=== PATIENT | male | born 1940 | race Caucasian/White ===

== ENCOUNTER 2019-11-09 17:42 | Emergency (ER) | payer MEDICARE, SELFPAY ==
[2019-11-09 17:55] VITALS: BP 169/86; PULSE 87; RESP 18; TEMP 36.8; O2SAT 96
--- NOTE | 2019-11-09 18:17 | ED.SKABFB ---
HPI - Skin/Abscess/Foreign Bdy General Chief complaint: Skin/Abscess/Foreign Body Stated complaint: rash Source: patient Mode of arrival: ambulatory Limitations: no limitations History of Present Illness HPI narrative: Patient states that this rash began yesterday and today it has gotten much worse he has a rash on bilateral lower extremities and up onto his truck. It is present on his buttocks and low back as well. It is red and somewhat itchy. He has no fevers no nausea no vomiting he does not feel ill in any other way complaint: rash Onset (ago): day(s) Location: back, buttocks, LLE and RLE Severity: mild Relieving factors: none Exacerbating factors: none Associated symptoms: denies other symptoms Treatments prior to arrival: none Related Data Home Medications Medication Instructions Recorded Confirmed apixaban [Eliquis] 5 mg PO DAILY 11/09/19 11/09/19 aspirin [Aspirin Low Dose] 81 mg PO DAILY 11/09/19 11/09/19 isosorbide mononitrate 30 mg PO DAILY 11/09/19 11/09/19 pravastatin 20 mg PO DAILY 11/09/19 11/09/19 tamsulosin 0.4 mg PO TIDWMEAL 11/09/19 11/09/19 Allergies Allergy/AdvReac Type Severity Reaction Status Date / Time Penicillins Allergy Mild Rash Verified 11/09/19 18:20 Review of Systems Review of Systems: All systems reviewed & are unremarkable except as noted in HPI and below Constitutional: Constitutional: Reports no additional constitutional complaints Eyes: Eyes: Reports no additional eye complaints ENT: Reports system reviewed and no additional complaints, except as documented Cardiovascular: Cardiovascular: Reports no additional cardiovascular complaints Respiratory: Respiratory: Reports no additional respiratory complaints Gastrointestinal: Gastrointestinal: Reports no additional gastrointestinal complaints Genitourinary: Genitourinary: Reports no additional male genitourinary complaints Musculoskeletal: Musculoskeletal: Reports no additional musculoskeletal complaints Neurologic: Reports system reviewed and no additional complaints, except as documented Psychiatric: Psychiatric: Reports no additional psychiatric complaints Endocrine: Endocrine: Reports no additional endocrine complaints Hematologic/Lymphatic: Hematologic/Lymphatic: Reports no additional hematologic/lymphatic complaints Allergic/Immunologic: Allergic/Immunologic: Reports no additional allergic/immunologic complaints [facility] Past Medical History Medical History (Updated 11/09/19 @ 18:26 by Magali Doe MD) BPH (benign prostatic hyperplasia) Hypercholesteremia Social History Social History (Updated 11/09/19 @ 18:21 by Magali Doe MD) Smoking status: Former smoker Alcohol intake: never Substance use: never Gender identity (if verbalized by the patient): Male Exam Const: General: no acute distress and alert Orientation/consciousness: patient oriented x3 HENMT: Head: normal to inspection Eyes: Conjunctivae: conjunctivae normal Pupils: Equal, round and reactive pupils present Chest: Chest palpation & inspection: normal inspection of the chest Resp: Effort & Inspection: normal respiratory effort Auscultation: clear to auscultation bilaterally Cardio: Rate: regular rate Rhythm: regular rhythm GI: Auscultation: normal bowel sounds Back/Spine/Pelvis: Back: no CVA tenderness Skin: General skin exam: normal color Other: morbilliform type rash over bilateral lower extremities extending up in the posterior gluteal and posterior trunk was blanching rash over majority of body some nonblanching present over anterior mason bilaterally Neuro: General: patient oriented x3 and moves all extremities Psych: Appearance: grossly normal Mental Status: mental status grossly normal Thought content: Yes Normal thought content present Course Vital Signs Vital signs: Vital Signs Temperature 36.8 C 11/09/19 17:55 Pulse Rate 87 11/09/19 17:55 Respiratory Rate 18
[2019-11-09 18:21] LABS: Basophils Absolute Auto 0.04 K/mm3 (0.00-0.10); Basophils Percent Auto 0.4 % (0.0-1.0); Eosinophils Absolute Auto 0.43 K/mm3 (0.02-0.50); Eosinophils Percent Auto 4.3 % (1.0-6.0); Hematocrit 45.1 % (37.0-46.0); Immature Granulocyte Absolute 0.05 K/mm3 (0.00-0.00); Immature Granulocyte Percent A 0.5 % (0.0-0.0); Lymphocytes Absolute Auto 0.97 K/mm3 (1.10-4.50); Lymphocytes Percent Auto 9.7 % (18.0-42.0); Mean Corpuscular HGB Conc 33.3 g/dL (32.0-36.0); Mean Corpuscular Hemoglobin 31.3 pg (27.0-31.0); Mean Corpuscular Volume 94.2 fL (78.0-102.0); Mean Platelet Volume 9.1 fl (8.7-11.0); Monocytes Absolute Auto 0.86 K/mm3 (0.10-0.90); Monocytes Percent Auto 8.6 % (2.0-11.0); Neutrophils Absolute Auto 7.7 K/mm3 (1.7-7.2); Neutrophils Percent Auto 76.5 % (50.0-70.0); Platelet Count Result 179 K/mm3 (150-420); Red Blood Count 4.79 M/mm3 (4.70-6.10); Red Cell Distribution Width 12.7 % (11.6-14.4)
[2019-11-09 18:35] LABS: Alanine Aminotransferase 23 U/L (16-63); Albumin Level 3.3 g/dL (3.4-5.0); Alkaline Phosphatase 71 U/L (46-116); Anion Gap 7 mmol/L (8-16); Aspartate Amino Transferase 14 U/L (15-37); Bilirubin,Total 0.5 mg/dL (0.00-1.00); Blood Urea Nitrogen 16 mg/dL (7-18); Calcium 8.6 mg/dL (8.5-10.1); Carbon Dioxide 28 mmol/L (21-32); Chloride 105 mmol/L (98-108); Estimated CRCL calculation 40 ml/min; Estimated Glomerular Filt Rate 48; Glucose 131 mg/dL (70-99); Osmolality Calculated 293 mOsm/kg (285-295); Potassium 3.7 mmol/L (3.5-5.1); Sodium 140 mmol/L (136-145); Total Protein 7.2 g/dL (6.4-8.2)
== END 2019-11-09 18:53 | disposition home or self-care (01) ==
PROVIDERS: Emergency Provider Emergency Medicine; PCP Internal Medicine
DX: T78.40XA Allergy, unspecified, initial encounter (principal)
CPT/HCPCS: 36415; 80053; 83520; 85025; 99282; 99283

== ENCOUNTER 2020-10-20 08:38 | Emergency (ER) | payer MEDICARE, SELFPAY ==
[2020-10-20 08:40] VITALS: BP 142/70; PULSE 71; RESP 16; TEMP 37; O2SAT 94
--- NOTE | 2020-10-20 09:09 | ED.WEAKNESS ---
HPI - Weakness General Chief complaint: Fall Stated complaint: fell in bathroom Time Seen by Provider: 10/20/20 09:09 Source: patient Mode of arrival: ambulatory Limitations: no limitations History of Present Illness HPI Narrative: Patient is brought in by . He has had ongoing moderate generalized weakness at home, no new focal weakness. Weakness is chronic and has not changed over the past few months. Complaint: generalized weakness Onset (ago): month(s) Duration: constant Location: generalized Migration: none Severity: moderate Relieving factors: none Exacerbating factors: evening (worse toward the end of the day) Associated symptoms: denies other symptoms Related Data Home Medications Medication Instructions Recorded Confirmed apixaban [Eliquis] 5 mg PO DAILY 11/09/19 11/09/19 aspirin [Aspirin Low Dose] 81 mg PO DAILY 11/09/19 11/09/19 isosorbide mononitrate 30 mg PO DAILY 11/09/19 11/09/19 pravastatin 20 mg PO DAILY 11/09/19 11/09/19 Allergies Allergy/AdvReac Type Severity Reaction Status Date / Time Penicillins Allergy Mild Rash Verified 11/09/19 18:20 Review of Systems Constitutional: Constitutional: Reports no additional constitutional complaints Eyes: Eyes: Reports no additional eye complaints ENT: Reports system reviewed and no additional complaints, except as documented Cardiovascular: Cardiovascular: Reports no additional cardiovascular complaints Respiratory: Respiratory: Reports no additional respiratory complaints Gastrointestinal: Gastrointestinal: Reports no additional gastrointestinal complaints Genitourinary: Genitourinary: Reports no additional male genitourinary complaints Musculoskeletal: Musculoskeletal: Reports no additional musculoskeletal complaints Integumentary/Breasts: Skin/Breast: Reports system reviewed and no additional complaints, except as docu Neurologic: Reports system reviewed and no additional complaints, except as documented Psychiatric: Psychiatric: Reports no additional psychiatric complaints Endocrine: Endocrine: Reports no additional endocrine complaints, Denies as per HPI, Denies excessive sweating, Denies fatigue, Denies polydipsia and Denies polyuria Hematologic/Lymphatic: Hematologic/Lymphatic: Reports no additional hematologic/lymphatic complaints Allergic/Immunologic: Allergic/Immunologic: Reports no additional allergic/immunologic complaints PMFSH Past Medical History Medical History BPH (benign prostatic hyperplasia) Hypercholesteremia Surgical History Surgical History Hx of CABG Family History Family History Father CAD (coronary artery disease) Mother Cerebrovascular accident Social History Social History Smoking status: Former smoker Alcohol intake: never Substance use: never Gender identity (if verbalized by the patient): Male Exam Const: General: healthy appearing, no acute distress and alert Orientation/consciousness: patient oriented x3 HENMT: Head: normal to inspection Ears: external ears normal and TM's normal bilaterally General nose exam: Normal external nose present Mouth: Yes Normal oral and palatal mucosa present Throat: posterior oropharynx normal Eyes: Conjunctivae: conjunctivae normal Neck: Neck: normal visual inspection Chest: Chest palpation & inspection: normal inspection of the chest Resp: Effort & Inspection: normal respiratory effort Auscultation: clear to auscultation bilaterally Cardio: Rate: regular rate Rhythm: regular rhythm GI: GI Palp: Yes Soft to palpation (nontender) : Male General Exam: Yes normal external exam Back/Spine/Pelvis: Back: no CVA tenderness Skin: General skin exam: normal color Neuro: General: patient oriented x3 and moves all extremities Extrem: G
[2020-10-20 09:16] LABS: Add Urine Microscopic? YES; Appearance Urine Clear (Clear); Bilirubin Urine Negative (Negative); Blood Urine 1+ (Negative); Color Urine Light Yellow (Yellow); Glucose Urine UA Negative (Negative); Ketones Urine Negative (Negative); Leukocyte Esterase Ur Negative LEU/UL (Negative); Nitrate Urine Negative (Negative); Protein Urine Negative (Negative); Urobilinogen Urine 0.2 mg/dL (0.2-1.0)
[2020-10-20 09:20] LABS: Bacteria Urine None seen /hpf; RBC Urine 0-2 /hpf (0-2); WBC Urine None seen /hpf (0-3)
--- NOTE | 2020-10-20 09:30 | PC.NURSE ---
PT X 2 ASSIST HELPED UP TO COMMODE, PT ADJUSTS HIMSELF BY SCOOTING ONLY USING RIGHT SIDE AND FALLS TO THE FLOOR, DENIES PAIN, DENIES INJURY, NO OBVIOUS INJURY NOTED BY THIS RN. PT STATES THIS IS A SIGNIFICANT CHANGE FROM HIS DAILY ABILITIES.
[2020-10-20 09:37] LABS: Basophils Absolute Auto 0.06 K/mm3 (0.00-0.10); Basophils Percent Auto 0.7 % (0.0-1.0); Eosinophils Absolute Auto 0.26 K/mm3 (0.02-0.50); Eosinophils Percent Auto 2.8 % (1.0-6.0); Hematocrit 47.1 % (37.0-46.0); Hemoglobin 15.9 g/dL (12.4-15.3); Immature Granulocyte Absolute 0.05 K/mm3 (0.00-0.00); Immature Granulocyte Percent A 0.5 % (0.0-0.0); Lymphocytes Absolute Auto 1.44 K/mm3 (1.10-4.50); Lymphocytes Percent Auto 15.7 % (18.0-42.0); Mean Corpuscular HGB Conc 33.8 g/dL (32.0-36.0); Mean Corpuscular Hemoglobin 31.6 pg (27.0-31.0); Mean Corpuscular Volume 93.6 fL (78.0-102.0); Mean Platelet Volume 9.3 fl (8.7-11.0); Monocytes Absolute Auto 0.93 K/mm3 (0.10-0.90); Monocytes Percent Auto 10.1 % (2.0-11.0); Neutrophils Absolute Auto 6.4 K/mm3 (1.7-7.2); Neutrophils Percent Auto 70.2 % (50.0-70.0); Platelet Count Result 198 K/mm3 (150-420); Red Blood Count 5.03 M/mm3 (4.70-6.10); Red Cell Distribution Width 12.3 % (11.6-14.4); White Blood Count 9.2 K/mm3 (4.8-10.8)
[2020-10-20 09:54] LABS: Alanine Aminotransferase 21 U/L (16-63); Albumin Level 3.4 g/dL (3.4-5.0); Alkaline Phosphatase 70 U/L (46-116); Anion Gap 13 mmol/L (8-16); Aspartate Amino Transferase 14 U/L (15-37); Bilirubin,Total 0.5 mg/dL (0.00-1.00); Blood Urea Nitrogen 13 mg/dL (7-18); Calcium 8.8 mg/dL (8.5-10.1); Carbon Dioxide 24 mmol/L (21-32); Chloride 108 mmol/L (98-108); Estimated Glomerular Filt Rate 55; Glucose 106 mg/dL (70-99); Osmolality Calculated 300 mOsm/kg (285-295); Potassium 3.6 mmol/L (3.5-5.1); Sodium 145 mmol/L (136-145)
[2020-10-20 09:57] LABS: Lactic Acid Reflex 1.4 mmol/L (0.4-2.0)
--- NOTE | 2020-10-20 10:30 | PC.NURSE ---
PT REPORTS BOWEL MOVEMENT, CLEANED OF SOILED LINENS AND REPOSITIONED FOR COMFORT
[2020-10-20 11:19] VITALS: BP 153/73; PULSE 73; O2SAT 94
--- NOTE | 2020-10-20 11:31 | PC.NURSE ---
SPOKE WITH PATIENT AND FAMILY CONCERNING SAFETY ISSUES WHILE AT HOME D/T TO HIS INABILITY TO SAFELY WALK OR TRANSFER BY HIMSELF - DENIES NEEDING PRISON PLACEMENT OR THREE DAY ADMIT
[2020-10-23 20:41] LABS: Vitamin D 25 Hydroxy 9 ng/mL (30-100)
== END 2020-10-20 11:30 | disposition home or self-care (01) ==
PROVIDERS: Emergency Provider Emergency Medicine; PCP Internal Medicine
DX: R53.1 Weakness (principal); E78.00 Pure hypercholesterolemia, unspecified; Z87.891 Personal history of nicotine dependence; Z79.899 Other long term (current) drug therapy
CPT/HCPCS: 36415; 80053; 81001; 82306; 83605; 85025; 99282; 99283

== ENCOUNTER 2020-10-23 15:03 | Outpatient (CLI) | payer MEDICARE, SELFPAY ==
--- NOTE | ~2020-10-23 | XR_ITS ---
EXAMINATION: XR hip LT min 2V DATE: 10/23/2020 16:11 INDICATION: Left hip injury. TECHNIQUE: 2 views of left hip were obtained. COMPARISON: None. FINDINGS: Bone alignment is normal. No fracture. There is mild left hip osteoarthritis. IMPRESSION: 1. Mild left hip osteoarthritis. Reviewed, dictated and finalized at location A.
--- NOTE | ~2020-10-23 | XR_ITS ---
EXAMINATION: XR femur LT min 2V INDICATION: Left leg pain TECHNIQUE: Two views of the left femur are obtained on four radiographs COMPARISON: None available FINDINGS: Bone alignment is normal. There is no fracture. Calcified atherosclerosis is noted. IMPRESSION: 1. No acute osseous abnormality. Reviewed, dictated and finalized at location B.
--- NOTE | ~2020-10-23 | XR_ITS ---
EXAMINATION: XR shoulder LT min 2V, XR forearm LT 2V, XR humerus LT DATE: 10/23/2020 16:11 INDICATION: Fall with limited range of motion of the left upper extremity. TECHNIQUE: 1. AP internally and externally rotated, AP oblique externally rotated and transscapular Y views of t he left shoulder were obtained. 2. Internal and externally rotated views of the left humerus were obtained. 3. AP and lateral views of the left forearm were obtained. COMPARISON: Left shoulder radiographs dated 03/20/2017 FINDINGS: Left shoulder: Normal alignment. No fracture. Moderate left acromioclavicular and mild glenohumeral osteoarthritis. Visualized portions of the left lung is clear. Median sternotomy wires and mediastinal surgical clip s are seen, likely from prior coronary artery bypass grafting. Left humerus: There is minimal change in orientation of the humerus on the humeral radiographs however relatively o rthogonal views are obtained on the radiographs of the left shoulder and forearm. No fracture. Mild o steoarthritis at the left elbow with no evident joint effusion. Soft tissues are unremarkable. Left forearm: Old healed fracture deformity at the distal left radius. No acute fracture identified. Mild osteoarth ritis at the wrist and radial aspect of the carpus. Atherosclerotic calcification at the radial arter y at the radial aspect of the carpus. 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 No acute osseous abnormality. Reviewed, dictated and finalized at location A. 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 No acute osse ous abnormality. 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 No acute osse ous abnormality.
== END 2020-10-23 15:04 | disposition home or self-care (01) ==
LOC: CHSIMG 15:06
PROVIDERS: PCP Internal Medicine; Visit Provider Internal Medicine
DX: M25.552 Pain in left hip (principal); M25.512 Pain in left shoulder; M79.652 Pain in left thigh; M79.602 Pain in left arm
CPT/HCPCS: 73030; 73060; 73090; 73502; 73552

== ENCOUNTER 2021-02-11 10:32 | Outpatient (CLI) | payer MEDICARE, SELFPAY ==
--- NOTE | ~2021-02-11 | CT_ITS ---
EXAMINATION: CT brain wo con DATE: 02/11/2021 11:11 INDICATION: Status post fall. Head injury. TECHNIQUE: Computed tomography (CT) of the head was performed without intravenous contrast. The dose- length product was 605.33 mGy-cm. COMPARISON: MRI dated 06/27/[address] dated 06/24/2016 . FINDINGS: There is left periorbital and frontal scalp swelling. There are chronic right frontal lobe, right parietal lobe and right occipital lobe infarctions. There are chronic bilateral lacunar infarc tions. No ventriculomegaly or midline shift. There is intracranial atherosclerosis. Paranasal sinuses and mastoids are pneumatized no depressed skull fractures. No acute intracranial hemorrhage or infar ction. IMPRESSION: 1. Chronic right frontal, parietal and occipital lobe infarctions. Chronic bilateral lacunar infarcti ons. 2: No acute intracranial abnormality. Reviewed, dictated and finalized at location B. [employer] IMPRESSION: 1. Chronic right frontal, parietal and occipital lobe infarctions. Chronic bila teral lacunar infarctions. 2: No acute intracranial abnormality.
== END 2021-02-11 10:33 | disposition home or self-care (01) ==
LOC: CHSIMG 10:34
PROVIDERS: PCP Internal Medicine; Visit Provider Internal Medicine
DX: S09.90XA Unspecified injury of head, initial encounter (principal); Z79.01 Long term (current) use of anticoagulants
CPT/HCPCS: 70450

== ENCOUNTER 2021-03-04 12:57 | Outpatient (RCR) | payer MEDICARE, SELFPAY ==
--- NOTE | 2021-03-04 14:25 | PTOPEVAL ---
Thank you for referring Abbe Mulligan to [facility].? The patient is scheduled to be seen for therapy? __3__x/week for 12 visits. Please review, sign, date and return this plan of care LALY. I agree with and certify that the following plan of care is medically necessary. Referring Physician Date Admitting Provider: Attending Provider: Memo Adam MD Referring Provider: *PT Outpatient Evaluation Start: 03/04/21 13:03 Freq: Status: Active Protocol: Document 03/04/21 13:03 [facility] (Rec: 03/04/21 14:25 [email or web address] [id number]) Therapy Assessment Status Assessment Status Assessment Status Evaluation Outpatient Past Medical History Neurological History Hx Cerebrovascular Accident (CVA) Yes Cardiovascular History Hx Hypercholesterolemia Yes Hx Hypertension Yes Gastrointestinal History Hx Gastroesophageal Reflux Disease Yes Genitourinary History Hx Benign Prostatic Hyperplasia Yes Evaluation Information Problem Diagnosis unsteady gait, cva Onset 02/20/21 Subjective Information Pt. reports that he fell about Query Text:As Reported By Patient/ 2 months ago. He reports Family having fallen several days in a row. He reports that he went into the longterm for about 30 days after the falls for rehab. he states that about 6 months ago he could walk through the home, but states that he cannot walk much more than 10' at this time. He reports that he did not fall as frequently prior to the past couple months. He reports that his goal is to be able to walk further and walk through the home without falling. Prior Level of Function Activity Level (Last 3 Months) Occupation retired Hand Dominance Right Activity of Daily Living Ability Needs Some Help Community Mobility Needs Some Help Stairs Ability Needs Some Help Functional Cognition (Planning, Shopping Dependent , Taking Medications) Cooking No Cleaning No Laundry No Shopping No Driving No Comments Additional Prior Level of Function Pt. uses a wc for community Comments navigation. He is able to get around the home with his
--- NOTE | 2021-03-25 15:13 | OTOPEVAL ---
Thank you for referring Abbe Mulligan to [facility].? The patient is scheduled to be seen for therapy? ____x/week for ___ weeks. Please review, sign, date and return this plan of care LALY. I agree with and certify that the following plan of care is medically necessary. Referring Physician Date Admitting Provider: Attending Provider: Memo Adam MD Referring Provider: *OT Outpatient Evaluation Start: 03/25/21 13:31 Freq: Status: Active Protocol: Document 03/25/21 14:00 [facility] (Rec: 03/25/21 15:10 [facility] [id number]) Therapy Assessment Status Assessment Status Assessment Status Evaluation Outpatient Past Medical History Neurological History Hx Cerebrovascular Accident (CVA) Yes Cardiovascular History Hx Hypercholesterolemia Yes Hx Hypertension Yes Gastrointestinal History Hx Gastroesophageal Reflux Disease Yes Genitourinary History Hx Benign Prostatic Hyperplasia Yes Evaluation Information Problem Diagnosis Decreased L finger ROM Onset 03/18/21 Cause CVA Subjective Information Patient and his report Query Text:As Reported By Patient/ that patient's left hand has Family gotten very tight. Patient states that he does not use his left hand for functional use. Patient currently does not have any hand splints/ orthosis that he uses. Pain Assessment Timing of Pain Assessment Timing of Pain Assessment Assessment Self Report Self Report Pain Level 0 Pain Score Pain Score 0: Self Report Upper Extremity Range of Motion General Upper Extremity Range of Motion Reason Not Measured WNL/Right Gross Upper Extremity Range of Motion No AROM in the L hand/thumb Comments with moderate hypertonicity patient rests the L hand in 90 degrees of MCP flexion Splint/Brace/Cast Assessment Splint and Bracing Assessment Left Hand Fabrication Clinician Made Splint/Brace/Cast Type Resting Hand Reason For Splint/Brace/Cast Increase Range of Motion, Minimize Deformities,Optimal Positioning,Prevent Deformities Schedule As Tolerated Tolerance Tolerates Well Splinting/Bracing/Casting Comments patient and is on educated on wear and care of orthosis and report understanding Transfer Assessment Wheelchair Transfer Assessment Wheelchair Transfer Assistive Devices Gai
--- NOTE | 2021-03-27 14:27 | PTOPEVAL ---
Thank you for referring Abbe Mulligan to [facility].? The patient is scheduled to be seen for therapy? __2__x/week for 4 visits. Please review, sign, date and return this plan of care LALY. I agree with and certify that the following plan of care is medically necessary. Referring Physician Date Admitting Provider: Attending Provider: Memo Adam MD Referring Provider: *PT Outpatient Evaluation Start: 03/04/21 13:03 Freq: Status: Active Protocol: Document 03/27/21 13:02 [facility] (Rec: 03/27/21 14:23 [email or web address]) Therapy Assessment Status Assessment Status Assessment Status Progress Outpatient Past Medical History Neurological History Hx Cerebrovascular Accident (CVA) Yes Cardiovascular History Hx Hypercholesterolemia Yes Hx Hypertension Yes Gastrointestinal History Hx Gastroesophageal Reflux Disease Yes Genitourinary History Hx Benign Prostatic Hyperplasia Yes Evaluation Information Problem Diagnosis unsteady gait, CVA Onset 02/20/21 Subjective Information Pt. reports that he is Query Text:As Reported By Patient/ transfering easier. He is Family also able to walk with more ease in the home and over a further distance. She still notes trouble with the pt. getting out of his chair, but requires less frequent assist. Pain Assessment Self Report Self Report Pain Level 0 Pain Score Pain Score 0: Self Report Lower Extremity Muscle Strength Testing General Lower Extremity Strength Gross Lower Extremity Strength -right hip flexion 4+/5 -left hip flexion 3-/5 -right hip abduction 4/5 -left hip abduction 3-/5 -right knee flexion 4+/5 -left knee flexion 3-/5 -right knee extension 5/5 -left knee extension 3/5 Transfer Assessment Wheelchair Transfer Assessment Wheelchair Transfer Assistive Devices Gait Belt Ambulation Assistive Devices Cane, Small Base Quad Sit to Stand Wheelchair Transfer Ability Minimum Assistance X 1 Stand to Sit Wheelchair Transfer Ability Minimum Assistance X 1 Ability to Safely Transfer To/From a Minimum Assistance X 1 Wheelchair Wheelchair Transfer Technique Stand Pivot Bed Mobility Assessment Bed Mobility Bed Type Mat Overall Bed Mobility Ability Standby Assistance Balance Assessment Tinetti Balance Assessment Sitting Balance Steady, safe Ability to Arise Unable Attempts to Arise Unable Immed
--- NOTE | 2021-03-27 14:29 | PTOPEVAL ---
Thank you for referring Abbe Mulligan to [facility].? The patient is scheduled to be seen for therapy? ____x/week for ___ weeks. Please review, sign, date and return this plan of care LALY. I agree with and certify that the following plan of care is medically necessary. Referring Physician Date Admitting Provider: Attending Provider: Memo Adam MD Referring Provider: *PT Outpatient Evaluation Start: 03/04/21 13:03 Freq: Status: Active Protocol: Document 03/27/21 13:02 [facility] (Rec: 03/27/21 14:23 [email or web address]) Therapy Assessment Status Assessment Status Assessment Status Progress Outpatient Past Medical History Neurological History Hx Cerebrovascular Accident (CVA) Yes Cardiovascular History Hx Hypercholesterolemia Yes Hx Hypertension Yes Gastrointestinal History Hx Gastroesophageal Reflux Disease Yes Genitourinary History Hx Benign Prostatic Hyperplasia Yes Evaluation Information Problem Diagnosis unsteady gait, CVA Onset 02/20/21 Subjective Information Pt. reports that he is Query Text:As Reported By Patient/ transfering easier. He is Family also able to walk with more ease in the home and over a further distance. She still notes trouble with the pt. getting out of his chair, but requires less frequent assist. Pain Assessment Self Report Self Report Pain Level 0 Pain Score Pain Score 0: Self Report Lower Extremity Muscle Strength Testing General Lower Extremity Strength Gross Lower Extremity Strength -right hip flexion 4+/5 -left hip flexion 3-/5 -right hip abduction 4/5 -left hip abduction 3-/5 -right knee flexion 4+/5 -left knee flexion 3-/5 -right knee extension 5/5 -left knee extension 3/5 Transfer Assessment Wheelchair Transfer Assessment Wheelchair Transfer Assistive Devices Gait Belt Ambulation Assistive Devices Cane, Small Base Quad Sit to Stand Wheelchair Transfer Ability Minimum Assistance X 1 Stand to Sit Wheelchair Transfer Ability Minimum Assistance X 1 Ability to Safely Transfer To/From a Minimum Assistance X 1 Wheelchair Wheelchair Transfer Technique Stand Pivot Bed Mobility Assessment Bed Mobility Bed Type Mat Overall Bed Mobility Ability Standby Assistance Balance Assessment Tinetti Balance Assessment Sitting Balance Steady, safe Ability to Arise Unable Attempts to Arise Unable Immed
--- NOTE | 2021-04-11 07:47 | PTOPEVAL ---
Thank you for referring Abbe Mulligan to [facility].? The patient is scheduled to be seen for therapy? __1__x/week for 5 visits. Please review, sign, date and return this plan of care LALY. I agree with and certify that the following plan of care is medically necessary. Referring Physician Date Admitting Provider: Attending Provider: Memo Adam MD Referring Provider: *PT Outpatient Evaluation Start: 03/04/21 13:03 Freq: Status: Active Protocol: Document 04/10/21 12:00 [facility] (Rec: 04/11/21 07:46 [email or web address]) Therapy Assessment Status Assessment Status Assessment Status Progress Outpatient Past Medical History Neurological History Hx Cerebrovascular Accident (CVA) Yes Cardiovascular History Hx Hypercholesterolemia Yes Hx Hypertension Yes Gastrointestinal History Hx Gastroesophageal Reflux Disease Yes Genitourinary History Hx Benign Prostatic Hyperplasia Yes Evaluation Information Problem Diagnosis unsteady gait, CVA Onset 02/20/21 Subjective Information Pt. reports that he is doing Query Text:As Reported By Patient/ better. He states that he is Family walking further and more frequently. His states that getting into and out of the car is more safe. Pt. reports that he is able to walk through the home and standing to do dressing and bathing is less complicated. Pt. and his fear that discontinuing PT will result in pt. condition declining and would like to continue to improve distance with gait and strength. Pain Assessment Self Report Self Report Pain Level 0 Pain Score Pain Score 0: Self Report Lower Extremity Muscle Strength Testing General Lower Extremity Strength Gross Lower Extremity Strength -right hip flexion 5/5 -left hip flexion 3-/5 -right hip abduction 4+/5 -left hip abduction 3-/5 -right knee flexion 5/5 -left knee flexion 3/5 -right knee extension 5/5 -left knee extension 3/5 Muscle Length Testing Muscle Length Testing Left Hamstring Length 28 Query Text:(90 - 90 Position) Right Hamstring Length 20 Query Text:(90 - 90 Position) Transfer Assessment Wheelchair Transfer Assessment Wheel
== END 2021-05-14 08:45 | disposition home or self-care (01) ==
LOC: CHSPT 12:57
PROVIDERS: PCP Internal Medicine; Visit Provider Internal Medicine
DX: R26.81 Unsteadiness on feet (principal); I63.9 Cerebral infarction, unspecified
CPT/HCPCS: 97110; 97112; 97116; 97162; 97165; 97530; 97760

== ENCOUNTER 2021-07-16 13:51 | Outpatient (CLI) | payer MEDICARE, SELFPAY ==
--- NOTE | ~2021-07-16 | US_ITS ---
EXAMINATION: US retroperitoneal comp DATE: 07/16/2021 15:03 INDICATION: Hematuria TECHNIQUE: Multiple grayscale and Doppler ultrasound images of the kidneys were obtained. COMPARISON: 07/15/2018 FINDINGS: The right kidney measures 9.3 x 5.3 x 4.4 cm. The left kidney measures 9.4 x 5.6 x 4.4 cm. There appears to be a 1.8 cm hypoechoic mass of the left mid kidney The kidneys demonstrate normal pa renchymal echogenicity. There is no hydronephrosis. The bladder volume is nine 74 cc prevoid and 775 cc postvoid. IMPRESSION: 1. Urinary retention. 2. Mild atrophy of the kidneys. 3. Possible hypoechoic mass of the left mid kidney. Further evaluation by CT without and with contras t is recommended. Reviewed, dictated and finalized at location A. IMPRESSION: 1. Urinary retention. 2. Mild atrophy of the kidneys. 3. Possible hypoechoic mass of the left mid kidney. Further evaluation by CT wi thout and with contrast is recommended.
== END 2021-07-16 13:52 | disposition home or self-care (01) ==
LOC: CHSIMG 13:52
PROVIDERS: PCP Internal Medicine; Visit Provider Internal Medicine
DX: R31.9 Hematuria, unspecified (principal)
CPT/HCPCS: 76770

== ENCOUNTER 2021-07-23 09:18 | Outpatient (CLI) | payer MEDICARE, SELFPAY ==
--- NOTE | ~2021-07-23 | CT_ITS ---
EXAMINATION: CT abdomen wo/w con DATE: 07/23/2021 10:25 INDICATION: Left renal mass: Possible 1.8 cm hypoechoic mass of left mid kidney reported on 07/16/2021 retroperitoneal ultrasound examination TECHNIQUE: Computed tomography (CT) of the abdomen was performed without and subsequently with 100 CC Omnipaque 350 intravenous contrast. Automated exposure control and iterative reconstruction techniqu e were employed. Exam dose: 1265.43 mGy-cm total exam DLP. COMPARISON: 08/02/2021 FINDINGS: There is mild discoid atelectasis//or scarring at the lung bases. Status post sternotomy Heart size is borderline. No pericardial or pleural effusion. There is approximately 3 mm stone in the nondependent aspect of the gastric fundus. No gallbladder wa ll thickening or pericholecystic fluid or fat stranding is noted. No hepatic, splenic, pancreatic, and adrenal or suspicious renal space occupying mass lesion is detec antonino. There may be one or 2 small cysts of each kidney. Normal appendix. Diverticulosis of the included descending and sigmoid: No evidence of diverticulitis. No bowel obstru ction, bowel wall thickening, pneumatosis or intraperitoneal free air is detected. The urinary bladder is quite distended, extending above the level of the umbilicus. Moderate bladder wall thickening. The pelvis including much of the bladder is excluded from this examination. There is mild to moderate bilateral hydroureteronephrosis. Bladder outlet obstruction is suspected. There is atherosclerotic calcification of the abdominal aorta but no abdominal aortic aneurysm. No intraperitoneal or retroperitoneal mass lesion or adenopathy or ascites. Approximately 2 x 2 x 1 cm fat-containing umbilical hernia. No suspicious osteolytic or osteoblastic lesions. There is severe degenerative disc disease at L5-S1 IMPRESSION: No suspicious renal mass lesion is evident Probably distended urinary bladder, moderate bladder wall thickening, bilateral mild to moderate hydr oureteronephrosis, suggesting bladder outlet obstruction Normal appendix Diverticulosis of the colon; no CT evidence of diverticulitis 3 mm gallstone Mild cardiomegaly Status post sternotomy Approximately 2 cm fat-containing umbilical hernia Severe degenerative disc disease at L5-S1 Reviewed, dictated and finalized at [facility]. Reviewed, dictated and finalized at location B. IMPRESSION: No suspicious renal mass lesion is evident Probably distended urinary bladder, moderate bladder wall thickening, bilateral mild to moderate hydroureteronephrosis, suggesting bladder outlet obstruction Normal appendix Diverticulosis of the colon; no CT evidence of diverticulitis 3 mm gallstone Mild cardiomegaly Status post sternotomy Approximately 2 cm fat-containing umbilical hernia Severe degenerative disc disease at L5-S1
[2021-07-23 09:52] LABS: Estimated Glomerular Filt Rate > 60
== END 2021-07-23 09:19 | disposition home or self-care (01) ==
LOC: CHSIMG 09:19
PROVIDERS: PCP Internal Medicine; Visit Provider Internal Medicine
DX: N28.89 Other specified disorders of kidney and ureter (principal)
CPT/HCPCS: 74170; Q9967

== ENCOUNTER 2021-07-24 10:34 | Observation (INO) | payer MEDICARE, SELFPAY ==
[2021-07-24] VITALS (28 sets, daily range): BP systolic 106–153; BP diastolic 60–94; PULSE 64–90; RESP 16–22; TEMP 36.1–37.1; O2SAT 91–100; BMI 10.0; BMI 24.4
--- NOTE | ~2021-07-24 | XR_ITS ---
XR chest 1V portable 07/24/2021 11:42 Indication: Chest pain Procedure: AP portable chest Comparison: Comparison to multiple prior studies sequentially, with oldest reviewed study dated 09/2016. Findings: Status post median sternotomy for CABG. Heart size normal. No focal air space disease, pulm onary edema, pleural effusion or suspected pneumothorax. Impression: 1: No acute cardiopulmonary disease. Reviewed, dictated and finalized at location A. Impression: 1: No acute cardiopulmonary disease.
--- NOTE | ~2021-07-24 | CT_ITS ---
EXAMINATION: CT brain wo con INDICATION: Weakness COMPARISON: 02/11/2021 TECHNIQUE: Standard unenhanced head CT. The dose-length product (DLP) was 605.33 mGy-cm. The mA was a djusted according to patient size. Iterative reconstruction technique was employed. FINDINGS: There is no acute intraparenchymal hemorrhage. No evidence of mass lesion. No evidence of a cute infarction. Encephalomalacia throughout the right frontal, occipital, and parietal lobes continu es to evolve, consistent with prior infarct. There is mild periventricular and subcortical hypodensit y probably related to small vessel ischemic disease. There is mild prominence of the sulci and ventri cles related to cerebral atrophy. Intracranial calcified cerebral atherosclerosis is noted. There are no extra-axial collections. There is no mass effect or midline shift. Changes in the globes are like ly from ocular lens surgery. The visualized sinuses and mastoid air cells are well aerated. IMPRESSION: 1. Areas of prior right-sided infarction without definite acute intracranial abnormality. 2. Age related findings. Reviewed, dictated and finalized at location A. IMPRESSION: 1. Areas of prior right-sided infarction without definite acute intracranial ab normality. 2. Age related findings.
--- NOTE | 2021-07-24 10:59 | ECG_ITS ---
Measurements Intervals [place] Rate: 68 P: 88 NV: 171 QRS: 82 QRSD: 102 T: -24 QT: 388 QTc: 415 Interpretive Statements SINUS RHYTHM VENTRICULAR PREMATURE COMPLEX DELAYED PRECORDIAL R/S TRANSITION NONSPECIFIC ST & T-WAVE ABNORMALITY- INFERIOR LEADS BASELINE ARTIFACT- I, II, III, AVR, AVL, AVF, V1-V3 BORDERLINE ECG Electronically Signed On 07-24-2021 12:47:23 CDT by Jean Paul Orlelana D.O.
[2021-07-24 11:22] LABS: Basophils Absolute Auto 0.03 K/mm3 (0.00-0.10); Basophils Percent Auto 0.4 % (0.0-1.0); Eosinophils Absolute Auto 0.09 K/mm3 (0.02-0.50); Eosinophils Percent Auto 1.2 % (1.0-6.0); Hematocrit 38.3 % (37.0-46.0); Hemoglobin 12.9 g/dL (12.4-15.3); Immature Granulocyte Absolute 0.03 K/mm3 (0.00-0.00); Immature Granulocyte Percent A 0.4 % (0.0-0.0); Lymphocytes Absolute Auto 1.24 K/mm3 (1.10-4.50); Lymphocytes Percent Auto 16.4 % (18.0-42.0); Mean Corpuscular HGB Conc 33.7 g/dL (32.0-36.0); Mean Corpuscular Hemoglobin 32.2 pg (27.0-31.0); Mean Corpuscular Volume 95.5 fL (78.0-102.0); Mean Platelet Volume 9.5 fl (8.7-11.0); Monocytes Absolute Auto 0.98 K/mm3 (0.10-0.90); Monocytes Percent Auto 12.9 % (2.0-11.0); Neutrophils Absolute Auto 5.2 K/mm3 (1.7-7.2); Neutrophils Percent Auto 68.7 % (50.0-70.0); Platelet Count Result 173 K/mm3 (150-420); Red Blood Count 4.01 M/mm3 (4.70-6.10); Red Cell Distribution Width 12.5 % (11.6-14.4); White Blood Count 7.6 K/mm3 (4.8-10.8)
[2021-07-24 11:24] LABS: Add Urine Microscopic? YES; Appearance Urine Clear (Clear); Bilirubin Urine Negative (Negative); Blood Urine 3+ (Negative); Color Urine Yellow (Yellow); Glucose Urine UA Negative (Negative); Ketones Urine Negative (Negative); Leukocyte Esterase Ur Negative (Negative); Nitrate Urine Negative (Negative); Protein Urine Negative (Negative)
[2021-07-24 11:29] LABS: Bacteria Urine Trace /hpf; RBC Urine 51-75 /hpf (0-2); WBC Urine None seen /hpf (0-3)
[2021-07-24] MEDS: SODIUM CHLORIDE 0.9% IV 500 ML 999 ML IV CONT (11:40)
[2021-07-24 11:42] LABS: Lactic Acid Reflex 1.2 mmol/L (0.4-2.0)
[2021-07-24 11:47] LABS: Alanine Aminotransferase 15 U/L (16-63); Alkaline Phosphatase 74 U/L (46-116); Anion Gap 4 mmol/L (8-16); Aspartate Amino Transferase 11 U/L (15-37); Bilirubin,Total 0.5 mg/dL (0.00-1.00); Blood Urea Nitrogen 9 mg/dL (7-18); Calcium 8.3 mg/dL (8.5-10.1); Carbon Dioxide 30 mmol/L (21-32); Chloride 102 mmol/L (98-108); Estimated Glomerular Filt Rate > 60; Glucose 107 mg/dL (70-99); NT Pro B Type Natriuretic Pept 1023 pg/mL (0-450); Osmolality Calculated 280 mOsm/kg (285-295); Potassium 3.9 mmol/L (3.5-5.1); Sodium 136 mmol/L (136-145); Total Protein 6.6 g/dL (6.4-8.2); Troponin I 17.7 ng/L (0.00-60.4)
--- NOTE | 2021-07-24 12:23 | ED.WEAKNESS ---
HPI - Weakness General Chief complaint: Weakness Stated complaint: SENT BY DOCTOR Time Seen by Provider: 07/24/21 10:37 Source: patient, family and RN notes reviewed Mode of arrival: wheelchair Limitations: no limitations History of Present Illness Complaint: generalized weakness and difficulty walking Onset (ago): hour(s) (4) Duration: constant Location: generalized Migration: none Severity: mild Quality: other (pain-free ) Relieving factors: none Exacerbating factors: none Related Data Home Medications Medication Instructions Recorded Confirmed aspirin [Aspirin Low Dose] 81 mg PO DAILY 11/09/19 10/20/20 isosorbide mononitrate 30 mg PO DAILY 11/09/19 10/20/20 pravastatin 20 mg PO DAILY 11/09/19 10/20/20 fluticasone propionate 2 spray INTRANASAL DAILY 07/24/21 07/24/21 oxybutynin chloride See Rx Instructions .ROUTE .COMPLEX 07/24/21 07/24/21 rivaroxaban [Xarelto] 20 mg PO DAILY 07/24/21 07/24/21 tamsulosin 0.4 mg PO DAILY 07/24/21 07/24/21 Allergies Allergy/AdvReac Type Severity Reaction Status Date / Time Penicillins Allergy Mild Rash Verified 11/09/19 18:20 terbinafine Allergy Rash Verified 07/24/21 12:53 Review of Systems Review of Systems: All systems reviewed & are unremarkable except as noted in HPI and below PMFSH Past Medical History Medical History BPH (benign prostatic hyperplasia) Generalized weakness Hypercholesteremia Surgical History Surgical History Hx of CABG Family History Family History Father CAD (coronary artery disease) Mother Cerebrovascular accident Social History Social History Smoking status: Former smoker Alcohol intake: never Substance use: never Gender identity (if verbalized by the patient): Male Exam Const: General: no acute distress and alert Orientation/consciousness: patient oriented x3 Limitations: no limitations HENMT: Head: normal to inspection Ears: external ears normal, TM's normal bilaterally and EAC's normal General nose exam: Normal external nose present and Normal nares present Face and sinus: sinuses nontender Mouth: Yes moist mucous membranes Eyes: Conjunctivae: conjunctivae normal Pupils: Equal, round and reactive pupils present EOM: EOMs intact bilaterally Neck: Neck: normal visual inspection Chest: Chest palpation & inspection: normal inspection of the chest Resp: Effort & Inspection: normal respiratory effort Auscultation: clear to auscultation bilaterally Cardio: Rate: regular rate Rhythm: regular rhythm GI: GI Palp: Yes Soft to palpation and No Tenderness to palpation present (GI) Auscultation: normal bowel sounds : General: Yes bladder normal to palpation and Yes no CVA tenderness Male General Exam: Yes normal external exam Testes: Testes normal Back/Spine/Pelvis: Back: no CVA tenderness Skin: General skin exam: normal color Rashes: no rashes Neuro: General: patient oriented x3, no meningeal signs and CN's II-XI intact bilaterally Other: dense left upper and lower limb immobility due to past CVA Extrem: General: no pedal edema Other: left upper and lower limb early contractures Psych: Appearance: grossly normal and well kempt Mental Status: mental status grossly normal Affect: normal affect Attitude: cooperative Thought content: Yes Normal thought content present Course Course Emergency Course: Pt was stable in the ED. Reevaluation(s) Date: 07/24/21 Time: 11:31 Vital Signs Vital signs: Vital Signs Temperature 36.1 C L 07/24/21 10:34 Pulse Rate 78 07/24/21 10:34 Respiratory Rate 20 07/24/21 10:34 Blood Pressure 153/89 H 07/24/21 10:34 Pulse Oximetry 100 07/24/21 10:34 Temperature 36.1 C L 07/24/21 10:34 Pulse Rate 78 07/24/21 10:34 Respiratory Rate 2
--- NOTE | 2021-07-24 13:46 | PC.NURSE ---
food tray provided for pt and . awaiting physical therapy evaluation.
--- NOTE | 2021-07-24 17:00 | ADMGEN ---
This patient, Abbe Mulligan, was admitted to 2nd Floor Room 205-2. Patient/family oriented to hospital policies and general routines including ID bracelet, bed and alarms, visiting hours, pain management, procedures, bathroom and other care routines, personal items, smoking policy, room service/diet, and visiting hours. Information on how to activate the Rapid Response Team has been discussed. Patient/Family are encouraged to report perceived risks to care and to ask questions if they do not understand what they are told or what they should do.
[2021-07-24] MEDS: OXYBUTYNIN CHLORIDE 5 MG TABLET PO (18:30)
[2021-07-24] MEDS: OXYBUTYNIN CHLORIDE 5 MG TABLET 10 MG PO (20:48)
[2021-07-25] VITALS: BP 141/77; PULSE 78; RESP 17; TEMP 37; O2SAT 97
[2021-07-25 05:16] LABS: Hematocrit 39.3 % (37.0-46.0); Hemoglobin 12.9 g/dL (12.4-15.3); Mean Corpuscular HGB Conc 32.8 g/dL (32.0-36.0); Mean Corpuscular Hemoglobin 31.2 pg (27.0-31.0); Mean Corpuscular Volume 95.2 fL (78.0-102.0); Mean Platelet Volume 10.1 fl (8.7-11.0); Platelet Count Result 170 K/mm3 (150-420); Red Blood Count 4.13 M/mm3 (4.70-6.10); Red Cell Distribution Width 12.6 % (11.6-14.4); White Blood Count 8.8 K/mm3 (4.8-10.8)
[2021-07-25 05:26] LABS: Anion Gap 7 mmol/L (8-16); Blood Urea Nitrogen 9 mg/dL (7-18); Calcium 8.6 mg/dL (8.5-10.1); Carbon Dioxide 27 mmol/L (21-32); Chloride 105 mmol/L (98-108); Estimated CRCL calculation 48 ml/min; Estimated Glomerular Filt Rate > 60; Glucose 97 mg/dL (70-99); Osmolality Calculated 286 mOsm/kg (285-295); Potassium 3.8 mmol/L (3.5-5.1); Sodium 139 mmol/L (136-145)
--- NOTE | 2021-07-25 07:36 | PM.IMHP ---
H&P: HPI History of Present Illness Date/Time: 07/25/21 07:36 This is a 81-year-old male that presented to the emergency room was unable to take care of her due to progressive weakness. Patient has a past medical history of CVA, coronary artery disease, weakness, hypertension, acid reflux, and BPH. Patient was seen in the emergency room by physical therapy and was unable to ambulate. Patient was being seen by outpatient physical therapy and has been released as he has progressed as far as as he was going. Mr. Mulligan at this time is going to be in need of long-term care placement according to physical therapy's notes. Patient denies any pain he is alert and oriented. Patient is constantly having to use the bathroom. Patient labs on admission CT negative for any new CVA, Chest X-ray is negative, WBC 7.6, hemoglobin 12.9, [place] 38.3, sodium 136, potassium 3.9 BUN 9 creatinine 1.15. Until placement is found patient will be seen here by physical therapy and he will be up in a recliner chair. Chief Complaint: Debility, weakness Review of Systems Review of Systems: Weakness, fall, incontinence All systems reviewed & are unremarkable except as noted in HPI and below PMFSH Past Medical History Medical History BPH (benign prostatic hyperplasia) Generalized weakness Hypercholesteremia Surgical History Surgical History Hx of CABG Family History Family History Father CAD (coronary artery disease) Mother Cerebrovascular accident Social History Social History Smoking status: Never smoker Alcohol intake: never Substance use: never Gender identity (if verbalized by the patient): Male Spiritual care concerns: No Comments At time as signature, I have reviewed and agree with nursing past medical, social, surgical and family history. Please see nursing chart for further information. There is no relevant family history pertinent to the presenting complaint. Meds Home Medications and Allergies Home Medications Medication Instructions Recorded Confirmed Type aspirin [Aspirin Low Dose] 81 mg PO DAILY 11/09/19 07/24/21 History isosorbide mononitrate 30 mg PO DAILY 11/09/19 07/24/21 History pravastatin 20 mg PO DAILY 11/09/19 07/24/21 History fluticasone propionate 2 spray INTRANASAL DAILY 07/24/21 07/24/21 History oxybutynin chloride See Rx Instructions .ROUTE .COMPLEX 07/24/21 07/24/21 History rivaroxaban [Xarelto] 20 mg PO DAILY 07/24/21 07/24/21 History tamsulosin 0.4 mg PO DAILY 07/24/21 07/24/21 History Allergies Allergy/AdvReac Type Severity Reaction Status Date / Time Penicillins Allergy Mild Rash Verified 11/09/19 18:20 terbinafine Allergy Rash Verified 07/24/21 12:53 Vital Signs Vital Signs - 24 hr 07/24/21 10:34 07/24/21 10:45 07/24/21 10:48 Temperature 97 F L Pulse Rate 78 90 87 Respiratory Rate 20 20 20 Blood Pressure 153/89 H 130/66 Pulse Oximetry 100 100 91 07/24/21 11:00 07/24/21 11:03 07/24/21 11:15 Temperature Pulse Rate 82 72 73 Respiratory Rate 22 H 20 22 H Blood Pressure 130/62 Pulse Oximetry 94 97 96 07/24/21 11:20 07/24/21 11:42 07/24/21 11:45 Temperature Pulse Rate 71 75 75 Respiratory Rate 20 18 Blood Pressure 130/65 Pulse Oximetry 95 97 07/24/21 12:00 07/24/21 12:15 07/24/21 12:24 Temperature Pulse Rate 65 68 70 Respiratory Rate 18 20 20 Blood Pressure 122/69 Pulse Oximetry 98 97 97 07/24/21 12:30 07/24/21 12:31 07/24/21 12:45 Temperature Pulse Rate 72 74 79 Respiratory Rate 20 18 18 Blood Pressure 132/66 Pulse Oximetry 98 98 07/24/21 12:46 07/24/21 13:00 07/24/21 13:04 Temperature Pulse Rate 77 71 73 Respiratory Rate 20 20 21 H Blood Pressure 149/79 H 137/78 Pulse Oximetry 98 05/
[2021-07-25 08:00] VITALS: BP 129/79; PULSE 74; RESP 14; TEMP 36.3; O2SAT 95
[2021-07-25] MEDS: RIVAROXABAN 10 MG TABLET 20 MG PO (09:46)
[2021-07-25] MEDS: PRAVASTATIN SODIUM 20 MG TABLET PO (09:46)
[2021-07-25] MEDS: ASPIRIN 81 MG ENTERIC TABLET PO (09:46)
[2021-07-25] MEDS: TAMSULOSIN HCL 0.4 MG CAPSULE PO (09:46)
[2021-07-25] MEDS: ISOSORBIDE MONONITRATE 30 MG TAB.ER.24H PO (09:46)
[2021-07-25] MEDS: PANTOPRAZOLE SODIUM IV 40 MG VIAL IV PUSH (09:46)
[2021-07-25] MEDS: OXYBUTYNIN CHLORIDE 5 MG TABLET PO ×3 (09:47→21:22)
[2021-07-25 10:48] LABS: SARS-CoV-2 RNA PCR Negative (Negative)
[2021-07-25 16:05] VITALS: BP 127/66; PULSE 80; RESP 16; TEMP 37.1; O2SAT 96
[2021-07-25] MEDS: OXYBUTYNIN CHLORIDE 5 MG TABLET 10 MG PO (21:30)
[2021-07-26] VITALS: BP 141/66; PULSE 85; RESP 18; TEMP 36.2; O2SAT 95
[2021-07-26 07:37] VITALS: BP 121/66; PULSE 72; RESP 18; TEMP 37; O2SAT 97
[2021-07-26] MEDS: PRAVASTATIN SODIUM 20 MG TABLET PO (08:26)
[2021-07-26] MEDS: RIVAROXABAN 10 MG TABLET 20 MG PO (08:27)
[2021-07-26] MEDS: ISOSORBIDE MONONITRATE 30 MG TAB.ER.24H PO (08:27)
[2021-07-26] MEDS: TAMSULOSIN HCL 0.4 MG CAPSULE PO (08:27)
[2021-07-26] MEDS: PANTOPRAZOLE SODIUM IV 40 MG VIAL IV PUSH (08:28)
[2021-07-26] MEDS: ASPIRIN 81 MG ENTERIC TABLET PO (08:28)
--- NOTE | 2021-07-26 10:13 | PM.DS ---
DS: Admitting Diagnosis Discharge Date 07/26/2021 Weakness, Debility , Frequent falls Admitting Diagnosis Weakness, falls DS: Discharge Diagnosis Discharge Diagnosis (1) Hypertension: Qualifiers: Hypertension type: unspecified Qualified Code(s): I10 - Essential (primary) hypertension Code(s): I10 - Essential (primary) hypertension Status: Acute Assessment and Plan: Continue with home medication monitor vitals low sodium diet (2) Generalized weakness: Code(s): R53.1 - Weakness Status: Acute Assessment and Plan: physical therapy to evaluate and treat Occupational therapy to evaluate and treat Fall precaution Home placement (3) Hypercholesteremia: Code(s): E78.00 - Pure hypercholesterolemia, unspecified Status: Acute Assessment and Plan: Continue home medication (4) BPH (benign prostatic hyperplasia): Qualifiers: Lower urinary tract symptom detail: unspecified Code(s): N40.0 - Benign prostatic hyperplasia without lower urinary tract symptoms Status: Acute Assessment and Plan: continue home medication DS: Summary Hospital Course Reason for hospitalization: 07/26/2021 Hospital Course: This is a 81-year-old that was admitted due to increasing amount of falls and inability to get up and walk. Patient is unable to care for himself Is unable to take care of him at this time. While patient was here he received IV fluids initially. Patient was seen by physical therapy and Occupational Therapy where the recommendation was patient received fci service at a long-term care facility with the possibility of being able to go back home. Patient is incontinent even though he is alert and oriented his ability to participate in activities of daily living is increasingly decreased. Patient's labs are essentially negative potassium 3.8, sodium 139, BUN 9, creatinine 1.10, hemoglobin 12.9, [place] 39.3%, WBCs 8.8, platelets 170. Patient will go to custodial where he will receive PT and OT Time Spent with Patient Time attestation: Total time spent providing and/or coordinating discharge services: Exam Narrative: General: no acute distress and alert Orientation/consciousness: patient oriented x3 HENMT: Head: normal to inspection Eyes: Conjunctivae: conjunctivae normal Pupils: Equal, round and reactive pupils present Chest: Chest palpation & inspection: normal inspection of the chest Resp: Effort & Inspection: normal respiratory effort Auscultation: clear to auscultation bilaterally Cardio: Rate: regular rate Rhythm: regular rhythm GI: Auscultation: normal bowel sounds incontinent Back there is a no CVA tenderness Skin: General skin exam: normal color Other: Neuro: General: patient oriented x3 and moves all extremities Psych: Appearance: grossly normal Mental Status: mental status grossly normal Thought content: Yes Normal thought content present Female. DS: Data Data Completed and Pending Labs on day of discharge: Labs from last 24 hours 07/25/21 10:03 SARS-CoV-2 RNA (RT-PCR) Negative Discharge Plan Discharge Attending physician on discharge: Kasi Arora Discharging Clinician: Aron Mcfarland Anticipated Discharge Date/Time: 07/26/21 10:11 Patient Disposition: SNF Activity: may shower and as tolerated Diet: as tolerated and regular Discharge Instructions: Per Care Coordination: Discharge to SNF at [facility]. Nurse to call report to [phone]. Fax discharge orders/instructions to [phone]. Patient Instructions: Oxybutynin (By mouth), Enlarged Prostate (BPH) (DC), Chronic Fatigue Syndrome (ED), Chronic Hypertension (DC), Weakness (DC), Hyperlipidemia (DC) Stand Alone Forms: General Discharge Information Follow-up/Referrals: Memo Adam MD [Primary Care Provider] - 07/31/21 12:00 pm () Discharge Medicatio
--- NOTE | 2021-07-26 12:30 | PC.NURSE ---
[facility] waiting for insurance auth before accepting patient. Tayla at [facility] states she will call once they receive the auth they will notify us.
--- NOTE | 2021-07-26 13:45 | PC.NURSE ---
Followed up with Tayla at [facility], states they have not heard from the insurance company yet. States she will notify us when they get approval.
--- NOTE | 2021-07-26 14:35 | PC.NURSE ---
Patient to discharge to [facility], at 1420 report called to Adeline, patient discharged at 1435 via wheelchair, to transport.
--- NOTE | 2021-07-30 10:49 | PC.NURSE ---
retirement nurse states they received and understood the discharge instructions.
== END 2021-07-26 14:35 ==
LOC: CHSED 14:19 → CHS2ND 16:55
PROVIDERS: Nurse Practitioner Family; Admitting Provider Internal Medicine; Emergency Provider Emergency Medicine; PCP Internal Medicine; Visit Provider Internal Medicine
DX: R53.1 Weakness (principal); I69.354 Hemiplegia and hemiparesis following cerebral infarction affecting left non-dominant side; I25.10 Atherosclerotic heart disease of native coronary artery without angina pectoris; I10 Essential (primary) hypertension; E78.00 Pure hypercholesterolemia, unspecified; K21.9 Gastro-esophageal reflux disease without esophagitis; N40.0 Benign prostatic hyperplasia without lower urinary tract symptoms; Z20.822 Contact with and (suspected) exposure to COVID-19; Z95.1 Presence of aortocoronary bypass graft
CPT/HCPCS: 36415; 70450; 71045; 80048; 80053; 81001; 83605; 83880; 84484; 85025; 85027; 93005; 96374; 96376; 97163; 97165; 99285; A9270; C9113; C9803; G0378; J7040; U0003; U0005

== ENCOUNTER 2021-09-26 09:42 | Outpatient (NON) | payer MEDICARE, SELFPAY ==
[2021-09-26 09:50] LABS: Hematocrit 37.3 % (37.0-46.0); Hemoglobin 12.3 g/dL (12.4-15.3); Mean Corpuscular Hemoglobin 31.5 pg (27.0-31.0); Mean Corpuscular Volume 95.4 fL (78.0-102.0); Mean Platelet Volume 9.1 fl (8.7-11.0); Platelet Count Result 206 K/mm3 (150-420); Red Blood Count 3.91 M/mm3 (4.70-6.10); Red Cell Distribution Width 12.4 % (11.6-14.4); White Blood Count 7.6 K/mm3 (4.8-10.8)
[2021-09-26 10:04] LABS: Band Neutrophils Percent 3 % (0-6); Eosinophils Absolute Manual 0.07 K/mm3 (0.02-0.5); Eosinophils Percent Manual 1 % (1-6); Lymphocytes Absolute Manual 1.52 K/mm3 (1.1-4.5); Lymphocytes Percent Manual 20 % (18-44); Monocytes Absolute Manual 1.14 K/mm3 (0.1-0.90); Monocytes Percent Manual 15 % (3-9); Neutrophils Absolute Manual 4.86 K/mm3 (1.3-6.7); Neutrophils Percent Manual 61 % (46-73); Platelet Estimate Adequate (Adequate); Total Cells Counted 100
[2021-09-26 10:37] LABS: Alanine Aminotransferase 14 U/L (16-63); Albumin Level 2.8 g/dL (3.4-5.0); Alkaline Phosphatase 72 U/L (46-116); Anion Gap 10 mmol/L (8-16); Aspartate Amino Transferase 10 U/L (15-37); Bilirubin,Total 0.3 mg/dL (0.00-1.00); Blood Urea Nitrogen 13 mg/dL (7-18); Calcium 8.5 mg/dL (8.5-10.1); Carbon Dioxide 26 mmol/L (21-32); Chloride 105 mmol/L (98-108); Estimated Glomerular Filt Rate 53; Free T3 2.17 pg/mL (2.18-3.98); Glucose 134 mg/dL (70-99); Magnesium 2.2 mg/dL (1.8-2.4); Osmolality Calculated 294 mOsm/kg (285-295); Potassium 3.9 mmol/L (3.5-5.1); Sodium 141 mmol/L (136-145); Thyroid Stimulating Hormone 0.31 uIU/mL (0.36-3.74); Total Protein 6.7 g/dL (6.4-8.2)
== END 2021-09-26 09:43 | disposition home or self-care (01) ==
LOC: CHSLAB 09:43
PROVIDERS: Visit Provider Internal Medicine
DX: K59.01 Slow transit constipation (principal); I10 Essential (primary) hypertension
CPT/HCPCS: 36415; 80053; 83735; 84439; 84443; 84481; 85025

== ENCOUNTER 2021-12-03 06:26 | Outpatient (NON) | payer MEDICARE, SELFPAY ==
[2021-12-03 06:48] LABS: Basophils Absolute Auto 0.06 K/mm3 (0.00-0.10); Basophils Percent Auto 0.6 % (0.0-1.0); Eosinophils Absolute Auto 0.23 K/mm3 (0.02-0.50); Eosinophils Percent Auto 2.4 % (1.0-6.0); Hematocrit 38.7 % (37.0-46.0); Hemoglobin 12.6 g/dL (12.4-15.3); Immature Granulocyte Absolute 0.04 K/mm3 (0.00-0.00); Immature Granulocyte Percent A 0.4 % (0.0-0.0); Lymphocytes Absolute Auto 1.81 K/mm3 (1.10-4.50); Lymphocytes Percent Auto 19.2 % (18.0-42.0); Mean Corpuscular HGB Conc 32.6 g/dL (32.0-36.0); Mean Corpuscular Volume 95.3 fL (78.0-102.0); Mean Platelet Volume 9.2 fl (8.7-11.0); Monocytes Absolute Auto 1.18 K/mm3 (0.10-0.90); Monocytes Percent Auto 12.5 % (2.0-11.0); Neutrophils Absolute Auto 6.1 K/mm3 (1.7-7.2); Neutrophils Percent Auto 64.9 % (50.0-70.0); Platelet Count Result 264 K/mm3 (150-420); Red Blood Count 4.06 M/mm3 (4.70-6.10); Red Cell Distribution Width 13.2 % (11.6-14.4); White Blood Count 9.5 K/mm3 (4.8-10.8)
[2021-12-03 07:24] LABS: Free T4 Free Thyroxine 0.87 ng/dL (0.76-1.46); Thyroid Stimulating Hormone 1.24 uIU/mL (0.36-3.74)
== END 2021-12-03 06:27 | disposition home or self-care (01) ==
LOC: CHSLAB 06:33
PROVIDERS: Visit Provider Internal Medicine
DX: E53.8 Deficiency of other specified B group vitamins (principal); I10 Essential (primary) hypertension; Z79.899 Other long term (current) drug therapy
CPT/HCPCS: 36415; 84439; 84443; 85025

== ENCOUNTER 2022-05-06 06:46 | Outpatient (NON) | payer MEDICARE, SELFPAY ==
[2022-05-06 07:16] LABS: Basophils Absolute Auto 0.06 K/mm3 (0.00-0.10); Basophils Percent Auto 0.7 % (0.0-1.0); Eosinophils Absolute Auto 0.39 K/mm3 (0.02-0.50); Eosinophils Percent Auto 4.5 % (1.0-6.0); Hematocrit 42.1 % (37.0-46.0); Hemoglobin 14.1 g/dL (12.4-15.3); Immature Granulocyte Absolute 0.04 K/mm3 (0.00-0.00); Immature Granulocyte Percent A 0.5 % (0.0-0.0); Lymphocytes Absolute Auto 2.49 K/mm3 (1.10-4.50); Lymphocytes Percent Auto 28.9 % (18.0-42.0); Mean Corpuscular HGB Conc 33.5 g/dL (32.0-36.0); Mean Corpuscular Hemoglobin 31.8 pg (27.0-31.0); Mean Platelet Volume 9.5 fl (8.7-11.0); Monocytes Percent Auto 10.4 % (2.0-11.0); Neutrophils Absolute Auto 4.7 K/mm3 (1.7-7.2); Platelet Count Result 236 K/mm3 (150-420); Red Blood Count 4.43 M/mm3 (4.70-6.10); Red Cell Distribution Width 12.6 % (11.6-14.4); White Blood Count 8.6 K/mm3 (4.8-10.8)
[2022-05-06 07:36] LABS: Add Urine Microscopic? YES; Appearance Urine Slightly Cloudy (Clear); Bilirubin Urine Negative (Negative); Blood Urine Negative (Negative); Color Urine Yellow (Yellow); Glucose Urine UA Negative (Negative); Ketones Urine Negative (Negative); Leukocyte Esterase Ur 3+ LEU/UL (Negative); Nitrate Urine Positive (Negative); Protein Urine Negative (Negative); Specific Grav Ur 1.015 (1.010-1.020); Urobilinogen Urine 0.2 mg/dL (0.2-1.0)
[2022-05-06 07:42] LABS: Alanine Aminotransferase 14 U/L (16-63); Albumin Level 3.3 g/dL (3.4-5.0); Alkaline Phosphatase 81 U/L (46-116); Anion Gap 7 mmol/L (8-16); Aspartate Amino Transferase 11 U/L (15-37); Bilirubin,Total 0.5 mg/dL (0.00-1.00); Blood Urea Nitrogen 12 mg/dL (7-18); Calcium 8.3 mg/dL (8.5-10.1); Carbon Dioxide 28 mmol/L (21-32); Chloride 109 mmol/L (98-108); Cholesterol 153 mg/dL (0-200); Creatine Kinase 118 U/L (39-308); Estimated Glomerular Filt Rate 51; Glucose 86 mg/dL (70-99); HDL Direct 49 mg/dL (40-60); LDL Cholesterol Calculated 92 mg/dL (<130); Osmolality Calculated 296 mOsm/kg (285-295); Potassium 4.1 mmol/L (3.5-5.1); Sodium 144 mmol/L (136-145); Total Protein 6.8 g/dL (6.4-8.2); Triglycerides 60 mg/dL (0-150)
[2022-05-06 07:47] LABS: RBC Urine 0-2 /hpf (0-2); Squamous Epithelial Cell Urine Rare /hpf (Few); WBC Urine >75 /hpf (0-3)
[2022-05-06 07:48] LABS: Bacteria Urine 3+ /hpf
== END 2022-05-06 06:47 | disposition home or self-care (01) ==
PROVIDERS: Visit Provider Internal Medicine
DX: I63.50 Cerebral infarction due to unspecified occlusion or stenosis of unspecified cerebral artery (principal); I25.10 Atherosclerotic heart disease of native coronary artery without angina pectoris; E78.5 Hyperlipidemia, unspecified; I10 Essential (primary) hypertension; N39.0 Urinary tract infection, site not specified
CPT/HCPCS: 36415; 80053; 80061; 81001; 82550; 85025; 87086; 87088

== ENCOUNTER 2022-05-29 07:35 | Outpatient (NON) | payer MEDICARE, SELFPAY ==
[2022-05-29 09:01] LABS: Thyroid Stimulating Hormone 1.55 uIU/mL (0.36-3.74)
== END 2022-05-29 07:36 | disposition home or self-care (01) ==
LOC: CHSLAB 07:37
PROVIDERS: Visit Provider Internal Medicine
DX: E03.9 Hypothyroidism, unspecified (principal)
CPT/HCPCS: 36415; 84439; 84443

== ENCOUNTER 2022-06-03 06:31 | Outpatient (NON) | payer MEDICARE, SELFPAY ==
[2022-06-03 07:29] LABS: Free T4 Free Thyroxine 0.97 ng/dL (0.76-1.46); Thyroid Stimulating Hormone 1.16 uIU/mL (0.36-3.74)
== END 2022-06-03 06:32 | disposition home or self-care (01) ==
LOC: CHSLAB 06:32
PROVIDERS: Visit Provider Internal Medicine
DX: E03.9 Hypothyroidism, unspecified (principal)
CPT/HCPCS: 36415; 84439; 84443

== ENCOUNTER 2022-09-30 07:23 | Outpatient (NON) | payer MEDICARE, SELFPAY ==
[2022-09-30 08:14] LABS: Basophils Absolute Auto 0.05 K/mm3 (0.00-0.10); Basophils Percent Auto 0.6 % (0.0-1.0); Eosinophils Absolute Auto 0.34 K/mm3 (0.02-0.50); Eosinophils Percent Auto 4.1 % (1.0-6.0); Hemoglobin 14.3 g/dL (12.4-15.3); Immature Granulocyte Absolute 0.06 K/mm3 (0.00-0.00); Immature Granulocyte Percent A 0.7 % (0.0-0.0); Lymphocytes Absolute Auto 1.99 K/mm3 (1.10-4.50); Lymphocytes Percent Auto 23.7 % (18.0-42.0); Mean Corpuscular HGB Conc 32.5 g/dL (32.0-36.0); Mean Corpuscular Hemoglobin 31.2 pg (27.0-31.0); Mean Corpuscular Volume 96.1 fL (78.0-102.0); Mean Platelet Volume 9.9 fl (8.7-11.0); Monocytes Absolute Auto 0.87 K/mm3 (0.10-0.90); Monocytes Percent Auto 10.4 % (2.0-11.0); Neutrophils Absolute Auto 5.1 K/mm3 (1.7-7.2); Neutrophils Percent Auto 60.5 % (50.0-70.0); Platelet Count Result 249 K/mm3 (150-420); Red Blood Count 4.58 M/mm3 (4.70-6.10); Red Cell Distribution Width 12.8 % (11.6-14.4); White Blood Count 8.4 K/mm3 (4.8-10.8)
[2022-09-30 08:14] LABS: Appearance Urine Slightly Cloudy (Clear); Bilirubin Urine Negative (Negative); Blood Urine Negative (Negative); Color Urine Yellow (Yellow); Glucose Urine UA Negative (Negative); Ketones Urine Negative (Negative); Leukocyte Esterase Ur 3+ (Negative); Nitrate Urine Positive (Negative); Protein Urine Negative (Negative); Specific Grav Ur 1.015 (1.010-1.020); Urobilinogen Urine 0.2 mg/dL (0.2-1.0); pH Urine 7.5 (5.0-8.0)
[2022-09-30 08:20] LABS: Add Urine Microscopic? YES; RBC Urine None seen /hpf (0-2); WBC Urine 31-50 /hpf (0-3)
[2022-09-30 08:21] LABS: Bacteria Urine 3+ /hpf
[2022-09-30 08:24] LABS: Alanine Aminotransferase 19 U/L (16-63); Albumin Level 3.3 g/dL (3.4-5.0); Alkaline Phosphatase 74 U/L (46-116); Anion Gap 8 mmol/L (8-16); Aspartate Amino Transferase < 10 U/L (15-37); Bilirubin,Total 0.3 mg/dL (0.00-1.00); Blood Urea Nitrogen 13 mg/dL (7-18); Calcium 8.8 mg/dL (8.5-10.1); Carbon Dioxide 29 mmol/L (21-32); Chloride 107 mmol/L (98-108); Cholesterol 142 mg/dL (0-200); Estimated Glomerular Filt Rate 48; Glucose 101 mg/dL (70-99); HDL Direct 52 mg/dL (40-60); LDL Cholesterol Calculated 76 mg/dL (<130); Osmolality Calculated 298 mOsm/kg (285-295); Potassium 3.7 mmol/L (3.5-5.1); Sodium 144 mmol/L (136-145); Total Protein 7.6 g/dL (6.4-8.2); Triglycerides 70 mg/dL (0-150)
== END 2022-09-30 07:24 | disposition home or self-care (01) ==
LOC: CHSLAB 07:25
PROVIDERS: Visit Provider Internal Medicine
DX: I63.50 Cerebral infarction due to unspecified occlusion or stenosis of unspecified cerebral artery (principal); E78.5 Hyperlipidemia, unspecified; I10 Essential (primary) hypertension; R35.0 Frequency of micturition
CPT/HCPCS: 36415; 80053; 80061; 81001; 85025; 87077; 87086; 87088; 87186

== ENCOUNTER 2022-10-18 07:09 | Outpatient (NON) | payer MEDICARE, SELFPAY ==
[2022-10-18 07:29] LABS: Appearance Urine Slightly Cloudy (Clear); Bilirubin Urine Negative (Negative); Blood Urine Negative (Negative); Color Urine Light Yellow (Yellow); Glucose Urine UA Negative (Negative); Ketones Urine Negative (Negative); Leukocyte Esterase Ur 3+ (Negative); Nitrate Urine Positive (Negative); Protein Urine Negative (Negative); Urobilinogen Urine 0.2 mg/dL (0.2-1.0)
[2022-10-18 08:18] LABS: Add Urine Microscopic? YES; Bacteria Urine 3+ /hpf; RBC Urine None seen /hpf (0-2); WBC Urine 21-30 /hpf (0-3)
[2022-10-18 08:22] LABS: Anion Gap 8 mmol/L (8-16); Blood Urea Nitrogen 13 mg/dL (7-18); Calcium 8.9 mg/dL (8.5-10.1); Carbon Dioxide 28 mmol/L (21-32); Chloride 108 mmol/L (98-108); Estimated Glomerular Filt Rate 52; Glucose 81 mg/dL (70-99); Osmolality Calculated 297 mOsm/kg (285-295); Potassium 3.9 mmol/L (3.5-5.1); Sodium 144 mmol/L (136-145)
== END 2022-10-18 07:10 | disposition home or self-care (01) ==
LOC: CHSLAB 07:10
PROVIDERS: PCP Internal Medicine; Visit Provider Internal Medicine
DX: I63.50 Cerebral infarction due to unspecified occlusion or stenosis of unspecified cerebral artery (principal); I25.10 Atherosclerotic heart disease of native coronary artery without angina pectoris; N39.0 Urinary tract infection, site not specified; R82.90 Unspecified abnormal findings in urine
CPT/HCPCS: 36415; 80048; 81001; 87077; 87086; 87186

== ENCOUNTER 2022-11-06 06:38 | Outpatient (NON) | payer MEDICARE, SELFPAY ==
[2022-11-06 06:54] LABS: Appearance Urine Slightly Cloudy (Clear); Bilirubin Urine Negative (Negative); Blood Urine Negative (Negative); Color Urine Light Yellow (Yellow); Glucose Urine UA Negative (Negative); Ketones Urine Negative (Negative); Leukocyte Esterase Ur 3+ (Negative); Nitrate Urine Positive (Negative); Protein Urine Negative (Negative); Urobilinogen Urine 0.2 mg/dL (0.2-1.0)
[2022-11-06 07:07] LABS: Add Urine Microscopic? YES; RBC Urine None seen /hpf (0-2); WBC Urine 31-50 /hpf (0-3)
[2022-11-06 07:12] LABS: Bacteria Urine 3+ /hpf
== END 2022-11-06 06:39 | disposition home or self-care (01) ==
LOC: CHSLAB 06:40
PROVIDERS: Visit Provider Internal Medicine
DX: N39.0 Urinary tract infection, site not specified (principal)
CPT/HCPCS: 81001; 87077; 87086; 87088; 87186

== ENCOUNTER 2022-11-22 09:04 | Outpatient (NON) | payer MEDICARE, SELFPAY ==
[2022-11-22 10:32] LABS: Appearance Urine Cloudy (Clear); Bilirubin Urine Negative (Negative); Blood Urine Negative (Negative); Color Urine Yellow (Yellow); Glucose Urine UA Negative (Negative); Ketones Urine Negative (Negative); Leukocyte Esterase Ur 3+ (Negative); Nitrate Urine Positive (Negative); Protein Urine Negative (Negative); Urobilinogen Urine 0.2 mg/dL (0.2-1.0)
[2022-11-22 10:40] LABS: Add Urine Microscopic? YES; RBC Urine None seen /hpf (0-2); Squamous Epithelial Cell Urine Rare /hpf (Few); WBC Urine 16-20 /hpf (0-3)
[2022-11-22 10:41] LABS: Bacteria Urine 4+ /hpf
== END 2022-11-22 09:05 | disposition home or self-care (01) ==
LOC: CHSLAB 09:04
PROVIDERS: Visit Provider Internal Medicine
DX: N39.0 Urinary tract infection, site not specified (principal)
CPT/HCPCS: 81001; 87077; 87086; 87088; 87186

== ENCOUNTER 2023-01-13 06:22 | Outpatient (NON) | payer MEDICARE, SELFPAY ==
[2023-01-13 06:55] LABS: Basophils Absolute Auto 0.09 K/mm3 (0.00-0.10); Basophils Percent Auto 1.2 % (0.0-1.0); Eosinophils Percent Auto 5.3 % (1.0-6.0); Hematocrit 41.7 % (37.0-46.0); Hemoglobin 13.8 g/dL (12.4-15.3); Immature Granulocyte Absolute 0.03 K/mm3 (0.00-0.00); Immature Granulocyte Percent A 0.4 % (0.0-0.0); Lymphocytes Absolute Auto 1.98 K/mm3 (1.10-4.50); Lymphocytes Percent Auto 26.1 % (18.0-42.0); Mean Corpuscular HGB Conc 33.1 g/dL (32.0-36.0); Mean Corpuscular Hemoglobin 31.4 pg (27.0-31.0); Mean Corpuscular Volume 94.8 fL (78.0-102.0); Mean Platelet Volume 9.8 fl (8.7-11.0); Monocytes Absolute Auto 0.92 K/mm3 (0.10-0.90); Monocytes Percent Auto 12.1 % (2.0-11.0); Neutrophils Absolute Auto 4.2 K/mm3 (1.7-7.2); Neutrophils Percent Auto 54.9 % (50.0-70.0); Platelet Count Result 247 K/mm3 (150-420); Red Cell Distribution Width 12.6 % (11.6-14.4); White Blood Count 7.6 K/mm3 (4.8-10.8)
[2023-01-13 07:37] LABS: Vitamin B12 224 pg/mL (193-986)
== END 2023-01-13 06:23 | disposition home or self-care (01) ==
LOC: CHSLAB 06:31
PROVIDERS: Visit Provider Internal Medicine
DX: I10 Essential (primary) hypertension (principal); E53.8 Deficiency of other specified B group vitamins; I25.10 Atherosclerotic heart disease of native coronary artery without angina pectoris
CPT/HCPCS: 36415; 82607; 85025

== ENCOUNTER 2023-01-17 06:38 | Outpatient (NON) | payer MEDICARE, SELFPAY ==
[2023-01-17 07:19] LABS: Anion Gap 12 mmol/L (8-16); Blood Urea Nitrogen 13 mg/dL (7-18); Calcium 9.3 mg/dL (8.5-10.1); Carbon Dioxide 24 mmol/L (21-32); Chloride 106 mmol/L (98-108); Estimated Glomerular Filt Rate > 60; Glucose 90 mg/dL (70-99); Osmolality Calculated 294 mOsm/kg (285-295); Potassium 4.1 mmol/L (3.5-5.1); Sodium 142 mmol/L (136-145)
== END 2023-01-17 06:39 | disposition home or self-care (01) ==
LOC: CHSLAB 06:40
PROVIDERS: Visit Provider Internal Medicine
DX: I10 Essential (primary) hypertension (principal); I48.91 Unspecified atrial fibrillation
CPT/HCPCS: 36415; 80048

== ENCOUNTER 2023-05-16 07:08 | Outpatient (NON) | payer MEDICARE, SELFPAY ==
[2023-05-16 08:32] LABS: Alanine Aminotransferase 15 U/L (16-63); Albumin Level 3.4 g/dL (3.4-5.0); Alkaline Phosphatase 66 U/L (46-116); Anion Gap 8 mmol/L (8-16); Aspartate Amino Transferase < 10 U/L (15-37); Bilirubin,Total 0.5 mg/dL (0.00-1.00); Blood Urea Nitrogen 7 mg/dL (7-18); Calcium 8.6 mg/dL (8.5-10.1); Carbon Dioxide 29 mmol/L (21-32); Chloride 105 mmol/L (98-108); Cholesterol 148 mg/dL (0-200); Estimated Glomerular Filt Rate 56; Glucose 109 mg/dL (70-99); HDL Direct 54 mg/dL (40-60); LDL Cholesterol Calculated 79 mg/dL (<130); Osmolality Calculated 293 mOsm/kg (285-295); Potassium 3.6 mmol/L (3.5-5.1); Sodium 142 mmol/L (136-145); Triglycerides 75 mg/dL (0-150); Vitamin B12 682 pg/mL (193-986)
[2023-05-16 09:12] LABS: Basophils Absolute Auto 0.08 K/mm3 (0.00-0.10); Basophils Percent Auto 0.9 % (0.0-1.0); Eosinophils Absolute Auto 0.31 K/mm3 (0.02-0.50); Eosinophils Percent Auto 3.7 % (1.0-6.0); Hematocrit 46.5 % (37.0-46.0); Hemoglobin 15.1 g/dL (12.4-15.3); Immature Granulocyte Absolute 0.06 K/mm3 (0.00-0.00); Immature Granulocyte Percent A 0.7 % (0.0-0.0); Lymphocytes Absolute Auto 2.43 K/mm3 (1.10-4.50); Lymphocytes Percent Auto 28.6 % (18.0-42.0); Mean Corpuscular HGB Conc 32.5 g/dL (32.0-36.0); Mean Corpuscular Hemoglobin 30.4 pg (27.0-31.0); Mean Corpuscular Volume 93.6 fL (78.0-102.0); Mean Platelet Volume 9.3 fl (8.7-11.0); Monocytes Absolute Auto 0.68 K/mm3 (0.10-0.90); Neutrophils Absolute Auto 4.9 K/mm3 (1.7-7.2); Neutrophils Percent Auto 58.1 % (50.0-70.0); Platelet Count Result 280 K/mm3 (150-420); Red Blood Count 4.97 M/mm3 (4.70-6.10); Red Cell Distribution Width 12.8 % (11.6-14.4); White Blood Count 8.5 K/mm3 (4.8-10.8)
== END 2023-05-16 07:09 | disposition home or self-care (01) ==
LOC: CHSLAB 07:10
PROVIDERS: Visit Provider Internal Medicine
DX: E78.2 Mixed hyperlipidemia (principal); I10 Essential (primary) hypertension; N39.0 Urinary tract infection, site not specified; E53.8 Deficiency of other specified B group vitamins
CPT/HCPCS: 36415; 80053; 80061; 82607; 85025

== ENCOUNTER 2023-05-30 09:03 | Emergency (ER) | payer MEDICARE, MEDICAID, SELFPAY ==
--- NOTE | ~2023-05-30 | XR_ITS ---
EXAMINATION: XR sacrum coccyx min 2V DATE: 05/30/2023 09:50 INDICATION: Tailbone injury with pain TECHNIQUE: Frontal, angled frontal and lateral views of the sacrum and coccyx were obtained. COMPARISON: None. FINDINGS: Bone alignment is normal. No fracture. Mild osteoarthritis at the bilateral hip and sacroiliac joints . Moderate lower lumbar facet osteoarthritis. A few phleboliths in the pelvis. IMPRESSION: 1. 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 No acute osseo us abnormality. Reviewed, dictated and finalized at location A. IMPRESSION: 1. 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 No acute osseous abnormality.
[2023-05-30 09:03] VITALS: BP 118/63; PULSE 84; RESP 17; TEMP 37; O2SAT 94
--- NOTE | 2023-05-30 09:55 | ED.BACK ---
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 Does not complain of any other discomfort no belly pain no chest pain no shortness of breath. MD elicited complaint: back injury Pertinent past history: prior back pain Onset (ago): hour(s) Timing: improved Severity: mild Pain scale (0-10): 2 Similar Symptoms Previously: No Quality: dull Location: sacrum Radiation: buttocks Exacerbating factors: movement Relieving factors: immobilization Associated symptoms: denies other symptoms Related Data Home Medications Medication Instructions Recorded Confirmed aspirin 81 mg tablet,delayed 81 mg PO DAILY 11/09/19 05/30/23 release ([place]aby Low Dose Aspirin) isosorbide mononitrate 30 mg 30 mg PO DAILY 11/09/19 05/30/23 tablet,extended release 24 hr pravastatin 20 mg tablet 20 mg PO DAILY 11/09/19 05/30/23 fluticasone propionate 50 2 spray intranasal DAILY 07/24/21 05/30/23 mcg/actuation nasal spray,suspension rivaroxaban 20 mg tablet (Xarelto) 20 mg PO DAILY 07/24/21 05/30/23 tamsulosin 0.4 mg capsule 0.4 mg PO DAILY 07/24/21 05/30/23 Allergies Allergy/AdvReac Type Severity Reaction Status Date / Time Penicillins Allergy Mild Rash Verified 05/30/23 09:45 terbinafine Allergy Rash Verified 05/30/23 09:45 Review of Systems Review of Systems: All systems reviewed & are unremarkable except as noted in HPI and below PMFSH Past Medical History Medical History BPH (benign prostatic hyperplasia) Generalized weakness Hypercholesteremia Surgical History Surgical History Hx of CABG Family History Family History Father CAD (coronary artery disease) Mother Cerebrovascular accident Social History Social History Smoking status: Never smoker Alcohol intake: never Substance use: never Gender identity (if verbalized by the patient): Male Spiritual care concerns: No Exam Const: General: no acute distress Nutritional Appearance: well nourished Orientation/consciousness: patient oriented x3 Limitations: physical limitations HENMT: Head: normal to inspection Neck: Neck: normal visual inspection, no lymphadenopathy and no meningeal signs Chest: Chest palpation & inspection: normal inspection of the chest Resp: Effort & Inspection: normal respiratory effort Auscultation: clear to auscultation bilaterally Cardio: Rate: regular rate Rhythm: regular rhythm GI: GI Palp: Yes Soft to palpation Auscultation: normal bowel sounds Urinary Catheter: Urinary Catheter: patent and draining Back/Spine/Pelvis: Back: no CVA tenderness Skin: General skin exam: normal color Rashes: no rashes Wounds: no wounds Neuro: General: patient oriented x3, moves all extremities, no meningeal signs and no focal motor deficits Extrem: Other: Tailbone tenderness with palpation Course Course Emergency Course: patient currently comfortable rates his pain 2/10 did not want any pain medication x-rays performed and reviewed Vital Signs Vital signs: Vital Signs Temperature 37.0 C 05/30/23 09:03 Pulse Rate 84 05/30/23 09:03 Respiratory Rate 17 05/30/23 09:03 Blood Pressure 118/63 05/30/23 09:03 Pulse Oximetry 94 05/30/23 09:03 Oxygen Delivery Room
--- NOTE | 2023-05-30 10:16 | PC.NURSE ---
Spoke with staff at [facility] and rehab and reported off discharge. Patient's in room to receive discharge instructions. Staff from nursing facility is going to come get patient when they have a few minutes they state they are currently busy and is unable to take patient back due to medical conditions.
--- NOTE | 2023-05-30 10:55 | PC.NURSE ---
[facility] and rehab has arrived to take patient back to nursing facility.
[2023-05-30 10:58] VITALS: BP 120/85; PULSE 84; RESP 17; TEMP 36.9; O2SAT 95
== END 2023-05-30 10:58 ==
PROVIDERS: Emergency Provider Emergency Medicine; PCP Internal Medicine
DX: S33.5XXA Sprain of ligaments of lumbar spine, initial encounter (principal); Z79.82 Long term (current) use of aspirin; Z79.01 Long term (current) use of anticoagulants; W05.0XXA Fall from non-moving wheelchair, initial encounter
CPT/HCPCS: 72220; 99283

== ENCOUNTER 2023-11-20 19:00 | Outpatient (NON) | payer MEDICARE, SELFPAY ==
[2023-11-20 21:22] LABS: Add Urine Microscopic? YES; Appearance Urine Cloudy (Clear); Bilirubin Urine Negative (Negative); Blood Urine Trace (Negative); Color Urine Dark Yellow (Yellow); Glucose Urine UA Negative (Negative); Ketones Urine Negative (Negative); Leukocyte Esterase Ur 2+ (Negative); Nitrate Urine Positive (Negative); Protein Urine Trace (Negative); Specific Grav Ur 1.025 (1.010-1.020); Urobilinogen Urine 0.2 mg/dL (0.2-1.0)
[2023-11-20 21:23] LABS: Bacteria Urine 4+ /hpf; Squamous Epithelial Cell Urine Rare /hpf (Few); WBC Urine >75 /hpf (0-3)
== END 2023-11-20 19:01 | disposition home or self-care (01) ==
LOC: CHSLAB 19:05
PROVIDERS: Visit Provider Internal Medicine
DX: N39.0 Urinary tract infection, site not specified (principal)
CPT/HCPCS: 81001; 87077; 87086; 87088; 87186

== ENCOUNTER 2023-12-02 13:35 | Outpatient (CLI) | payer MEDICARE, SELFPAY ==
[2023-12-02 13:54] LABS: Immature Reticulocyte Fraction 9.6 % (2.0-16.52); Reticulocyte Hemoglobin Conten 31.4 pg (28.0-35.0); Reticulocyte Percent 1.94 % (0.50-1.50); Reticulocytes Absolute 0.08 M/mm3 (0.02-0.10)
[2023-12-02 15:03] LABS: Iron 32 ug/dL (65-175); Percent Iron Saturation 16 % (12-57)
[2023-12-02 15:27] LABS: Ferritin 152 ng/mL (26-388)
== END 2023-12-02 13:36 | disposition home or self-care (01) ==
LOC: CHSLAB 13:37
PROVIDERS: PCP Internal Medicine; Visit Provider Nurse Practitioner Family
DX: D64.9 Anemia, unspecified (principal)
CPT/HCPCS: 36415; 82728; 83540; 83550; 85046

== ENCOUNTER 2024-01-29 16:10 | Emergency (ER) | payer MEDICARE, SELFPAY ==
[2024-01-29 16:10] VITALS: BP 124/95; PULSE 90; RESP 16; TEMP 36.7; O2SAT 97
--- NOTE | 2024-01-29 16:20 | ED_ITS ---
HPI - General Adult General Chief complaint: GI Bleed Stated complaint: rectal bleeding Source: patient History of Present Illness HPI narrative: 84 years old white male came to the ED by wheelchair from [facility] from us complaining of rectal bleed prior to arrival. Patient denies any fever, chills, nausea, vomiting, abdominal pain or back pain. History of hemorrhoids Related Data Home Medications Medication Instructions Recorded Confirmed aspirin 81 mg tablet,delayed 81 mg PO DAILY 11/09/19 01/29/24 release (Faby Low Dose Aspirin) isosorbide mononitrate 30 mg 30 mg PO DAILY 11/09/19 01/29/24 tablet,extended release 24 hr pravastatin 20 mg tablet 20 mg PO DAILY 11/09/19 01/29/24 fluticasone propionate 50 2 spray intranasal DAILY 07/24/21 01/29/24 mcg/actuation nasal spray,suspension rivaroxaban 20 mg tablet (Xarelto) 20 mg PO DAILY 07/24/21 01/29/24 tamsulosin 0.4 mg capsule 0.4 mg PO DAILY 07/24/21 01/29/24 Allergies Allergy/AdvReac Type Severity Reaction Status Date / Time Penicillins Allergy Mild Rash Verified 01/29/24 16:21 terbinafine Allergy Rash Verified 01/29/24 16:21 Review of Systems Review of Systems: All systems reviewed & are unremarkable except as noted in HPI and below PMFSH Past Medical History Medical History BPH (benign prostatic hyperplasia) Generalized weakness Hypercholesteremia Surgical History Surgical History Hx of CABG Family History Family History Father CAD (coronary artery disease) Mother Cerebrovascular accident Social History Social History Smoking status: Never smoker Alcohol intake: never Substance use: never Gender identity (if verbalized by the patient): Male Spiritual care concerns: No Exam Narrative: General appearance: Well-developed, well-nourished Skin: Normal color r Chest and respiratory: Airway patent, no respiratory distress, no accessory muscle use Heart: Regular rate/rhythm Abdomen: Soft, nontender, no organomegaly, quiet bowel sounds rectal exam showing an opened bluish hemorrhoid oozing blood. Squeezed, blood clot is out, bleeding almost stopped. Vascular: Normal peripheral pulses, normal capillary refill. Musculoskeletal: Normal range of motion, nontender back Neurologic: Alert and oriented ?3, TRANSACTION ADVISORY SERVICES MANAGER is normal as tested, no gross motor deficit Medical Decision Making MDM Narrative Medical decision making narrative: Bleeding hemorrhoid, Blood clot was squeezed out of the hemorrhoid with immediate stopping of the bleeding. Discharged on Anusol HC suppository Differential Diagnosis Differential Diagnosis: bleeding hemorrhoid Critical Care Time Critical Care Time Critical Care Time: No Discharge Plan Discharge Clinical Impression: Bleeding external hemorrhoids Patient Disposition: [facility]As[facility] Living Condition: Improved Instructions: Hemorrhoids (ED) Additional Instructions: Return if symptoms are worsening , call your family physician for appointment, take Tylenol as as needed for aches and pain, continue home medications. Pressure dressing at the hemorrhoid area if there is any further bleeding sitz path Prescriptions: New hydrocortisone acetate [Anusol-HC] 25 mg suppository 25 mg RECTAL BID Qty: 20 0RF No Action aspirin [Faby Low Dose Aspirin] 81 mg Tablet,Delayed Release (Dr/Ec) 81 mg PO DAILY isosorbide mononitrate 30 mg tablet extended release 24 hr 30 mg PO DAILY pravastatin 20 mg tablet 20 mg PO DAILY tamsulosin 0.4 mg capsule 0.4 mg PO DAILY fluticasone propionate 50 mcg/actuation spray,suspension 2 spray INTRANASAL DAILY Xarelto 20 mg tablet 20 mg PO DAILY Follow-up/Referrals: Memo Adam MD [Primary Care Provider] -
[2024-01-29 16:52] VITALS: BP 124/95; PULSE 90; RESP 16; TEMP 36.7; O2SAT 97
== END 2024-01-29 16:52 ==
LOC: CHSED 16:39
PROVIDERS: Emergency Provider Emergency Medicine; PCP Internal Medicine
DX: K64.4 Residual hemorrhoidal skin tags (principal); Z79.899 Other long term (current) drug therapy; Z79.01 Long term (current) use of anticoagulants; Z79.82 Long term (current) use of aspirin
CPT/HCPCS: 99283

== ENCOUNTER 2024-07-12 08:10 | Outpatient (CLI) | payer MEDICARE, SELFPAY ==
--- OUTSIDE RECORDS SUMMARY | 2024-07-12 08:21 | XMS_ITS | Encounter Summary ---
Author Organization [facility] Address [address] [place] [address] Care Team Providers Care Laundry Pricing Clerk Name Role Phone Bob Hughes MD Primary Care Provider [phone] Bob Hughes MD Primary Care Provider [phone]- [phone] Memo Adam MD Primary Care Provider [phone] Encounter Details Date Type Department Care Team (Late st Contact Info) Description 05/16/2016 Orders Only [facility] ProviderEboni MD [address] [place] [address] Social History Tobacco Use Types Packs/Day Years Used Date Smoking Tobacco: Never Assessed Alcohol Use Standard Drinks/Week Comments No 0 (1 standard drink = 0.6 oz pur e alcohol) Sex and Gender Information Value Date Recorded Sex Assigned at Not on file 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 Historical Provider [facility]ILL[facility] Final Result documented in this encounter Visit Diagnoses Not on filedocumented in this encounter Care Teams Laundry Pricing Clerk Relationship Specialty Start Date End Date Bob Hughes MD [address] [place] [address] PCP - General 06/13/16 03/30/17 Bob Hughes MD [address] [place] [address] PCP - General 01/15/12 06/12/16 Memo Adam MD [address] [place] [address] PCP - General Internal Medicine 03/31/17 documented as of this encounter
--- OUTSIDE RECORDS SUMMARY | 2024-07-12 08:21 | XMS_ITS | Clinical Summary ---
Author Organization [facility] Address [address], [address] [address] Phone Care Team Providers Care Alteration Tailor Name Role Phone Bob Hughes MD Primary Care Provider [phone] Allergies Active Allergy Reactions Criticality Noted Date Comments Penicillins Hives 08/20/2015 Medications pravastatin (PRAVACHOL) 20 MG Tablet Take 20 mg by mouth daily. Active isosorbide dinitrate (ISORDIL) 30 MG Tablet Take 30 mg by mouth 4 times daily. Active Aspirin 81 MG Tablet Take 81 mg by mouth daily. Active Family History Medical History Relation Name Comments Congestive Heart Failure Father Osteoarthritis Mother Relation Name Status Comments Father Mother Social History Tobacco Use Types Packs/Day Years Used Date Smoking Tobacco: Never Alcohol Use Standard Drinks/Week Comments No 0 (1 standard drink = 0.6 oz pur e alcohol) Sex and Gender Information Value Date Recorded Sex Assigned at Not on file Legal Sex Male 9:20 AM CDT Gender Identity Not on file Sexual Orientation Not on file Last Filed Vital Signs Vital Sign Reading Time Taken Comments Blood Pressure 140/98 08/20/2015 2:29 PM CDT Pulse 80 08/20/2015 2:29 PM CDT Temperature - - Respiratory Rate 20 08/20/2015 2:29 PM CDT Oxygen Saturation - - Inhaled Oxygen Concentration - - Weight 90.5 kg (199 lb 9.6 oz) 08/20/2015 2:29 P M CDT Height 177.8 cm (5' 10 ) 08/20/2015 2:29 PM CDT Body Mass Index 28.64 08/20/2015 2:29 PM CDT Plan of Treatment Health Maintenance Due Date Last Done Comments Hepatitis C Virus (HCV) Screening 1940 TdaP Immunization 1940 Pneumococcal Immunization (5 0+ years) (1 of 1 - PCV) 1991 Zoster Immunization (1 of 2) 1991 Respiratory Syncytial Virus (RSV) Immunization (Adult) (1 - 1-dose 75+ series) 01/08/2016 Influenza Immunization (#1) 2023 SARS-COV-2 Immunization (1 - season) 2023 Hepatitis B Immunization Aged Out No longer eligible based on patient's age to complete this topic Meningococcal Immunization (ACWY) Aged Out No longer eligible based on patient's age to complete this topic Rotavirus Immunization Aged Out No lo nger eligible based on patient's age to complete this topic Insurance MEDICARE [facility] Care Teams Alteration Tailor Relationship Specialty Start Date End Date Bob Hughes MD [address] [place], [place] [id number] PCP - General Family Medicine 08/20/15
--- OUTSIDE RECORDS SUMMARY | 2024-07-12 08:21 | XMS_ITS | Referral Summary ---
Author Organization [facility] [address] Address [address] [place] [address] Care Team Providers Care Buying Agent Name Role Phone Memo Adam MD Primary Care Provider [phone] Encounters Date Type Department Care Team Description 06/02/2024 [facility] [address] [place] [address] Outpatient Health 4th Floor [address] [place] [phone] Shelby Fonseca 05/31/2024 [facility] [address] [place] [address] 4th Floor [address] [place] [phone] Shelby Fonseca from Last 3 Months Allergies Active Allergy Reactions Criticality Noted Date Comments Penicillins Hives Medium 08/20/2015 Medications aspirin (ASPIR-81) 81 mg tablet take 1 Tablet by oral route every day 0 0 7 Active apixaban (ELIQUIS) 5 mg tablet take 1 tablet by oral route 2 times every day 0 0 7 Active cyanocobalamin (Vitamin B-12) 1,000 mcg tabletIndication s:Prevention of Vitamin B12 Deficiency Take 1,000 mcg by mouth daily. 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 03/31/2017 Hx of CABG 03/31/2017 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 03/31/2017 Social History Tobacco Use Types Packs/Day Years Used Date Smoking Tobacco: Never Smokeless Tobacco: Never Alcohol Use Standard Drinks/Week Comments No 0 (1 standard drink = 0.6 oz pur e alcohol) Sex and Gender Information Value Date Recorded Sex Assigned at Not on file 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 Gender Identity Not on file Sexual Orientation Not on file Last Filed Vital Signs Vital Sign Reading Time Taken Comments Blood Pressure 124/72 05/23/2021 10:53 AM BOX SPRING FRAME BUILDER Pulse 92 05/23/2021 10:53 AM BOX SPRING FRAME BUILDER Temperature - - Respiratory Rate - - Oxygen Saturation 95% 05/23/2021 10:53 AM BOX SPRING FRAME BUILDER Inhaled Oxygen Concentration - - Weight 78.9 kg (174 lb) 05/23/2021 10:53 AM BOX SPRING FRAME BUILDER Height 177.8 cm (5' 10 ) 05/23/2021 10:53 AM BOX SPRING FRAME BUILDER Body Mass Index 24.97 05/23/2021 10:53 AM BOX SPRING FRAME BUILDER Plan of Treatment Not on file Insurance [facility] MEDICARE [facility] Address: [address] [address] [place] [address] Care Teams Buying Agent Relationship Specialty Start Date End Date Memo Adam MD [address] [place] [address] PCP - General Internal Medicine 03/31/17
--- OUTSIDE RECORDS SUMMARY | 2024-07-12 08:21 | XMS_ITS | Clinical Summary ---
Author Organization [facility] [address] Address [address] [place] [address] Care Team Providers Care Production Planner Name Role Phone Memo Adam MD Primary Care Provider [phone] Allergies Active Allergy Reactions Criticality Noted Date [...] mg SL tabletIndication s:Coronary artery disease involving absentee-shawnee coronary artery of absentee-shawnee heart without angina pectoris Place 1 tablet [...] Diagnosed Date Coronary artery disease invo lving absentee-shawnee coronary artery of absentee-shawnee heart without angina pectoris 03/31/2017 Hx of CABG 03/31/2017 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 03/31/2017 Encounters Date Type Department Care Team Description 06/02/2024 Telephone [facility] [address] [place] [address] Outpatient [facility] 4th Floor [address] [place] [phone] Shelby Fonseca 05/31/2024 Telephone [facility] [address] [place] [address] 4th Floor [address] [place] [address] Shelby Fonseca from Last 3 Months Medical History Medical History Date Comments Hypertension Hypertension Family History Medical History Relation Name Comments Valvular heart disease Brother 2 2 Valvu lar Heart Disease; Coronary artery disease Brother 3 Joe nary Artery Disease; Heart attack Father Myocardial Infa rction; Relation Name Status Comments Brother 1 Alive Brother 2 2 Alive Brother 3 Father Alive Social History Tobacco Use Types Packs/Day Years Used Date Smoking Tobacco: Never Smokeless Tobacco: Never Alcohol Use Standard Drinks/Week Comments No 0 (1 standard drink = 0.6 oz pur e alcohol) Sex and Gender Information Value Date Recorded Sex Assigned at Not on file Legal Sex Male 1:59 PM FLAT LOCK OPERATOR Gender Identity Not on file Sexual Orientation Not on file Obstetrics History Last Filed Vital Signs Vital Sign Reading Time Taken Comments Blood Pressure 124/72 05/23/2021 10:53 AM FLAT LOCK OPERATOR Pulse 92 05/23/2021 10:53 AM FLAT LOCK OPERATOR Temperature - - Respiratory Rate - - Oxygen Saturation 95% 05/23/2021 10:53 AM FLAT LOCK OPERATOR Inhaled Oxygen Concentration - - Weight 78.9 kg (174 lb) 05/23/2021 10:53 AM FLAT LOCK OPERATOR Height 177.8 cm (5' 10 ) 05/23/2021 10:53 AM FLAT LOCK OPERATOR Body Mass Index 24.97 05/23/2021 10:53 AM FLAT LOCK OPERATOR Plan of Treatment Not on file Insurance [facility] MEDICARE ADVANTAGE Care Teams Production Planner Relationship Specialty Start Date End Date Memo Adam MD [address] [place] [address] PCP - General Internal Medicine 03/31/17
--- OUTSIDE RECORDS SUMMARY | 2024-07-12 08:21 | XMS_ITS | Encounter Summary ---
Author Organization [facility] Address [address] [place] [address] Care Team Providers Care Director Of Graduate Admissions Name Role Phone Bob Hughes MD Primary Care Provider [phone]- [phone] Memo Adam MD Primary Care Provider [phone] Encounter Details Date Type Department Care Team (Late st Contact Info) Description 06/13/2016 Orders Only [facility] ProviderEboni MD [address] [place] [address] Social History Tobacco Use Types Packs/Day Years Used Date Smoking Tobacco: Never Assessed Alcohol Use Standard Drinks/Week Comments No 0 (1 standard drink = 0.6 oz pur e alcohol) Sex and Gender Information Value Date Recorded Sex Assigned at Not on file Legal Sex Male 1:59 PM PURCHASE REQUEST EDITOR Gender Identity Not on file Sexual Orientation Not on file documented as of this encounter Plan of Treatment Not on file documented as of this encounter Procedures Procedure Name Priority Date/Time Associated Diagnosis Comments CARDIOLOGY REPORT 06/13/2016 documented in this encounter Results * CARDIOLOGY REPORT (06/13/2016) Anatomical Region Laterality Modality Other Narrative 06/13/2016 Ordered by an unspecified provider. Historical Provider [facility]ILLARRE[facility] Final Result documented in this encounter Visit Diagnoses Not on filedocumented in this encounter Care Teams Director Of Graduate Admissions Relationship Specialty Start Date End Date Bob Hughes MD [address] [place] [address] PCP - General 06/13/16 03/30/17 Memo Adam MD [address] [place] [address] PCP - General Internal Medicine 03/31/17 documented as of this encounter
[2024-07-12 08:23] LABS: Hematocrit 40.8 % (37.0-46.0); Hemoglobin 12.9 g/dL (12.4-15.3); Mean Corpuscular HGB Conc 31.6 g/dL (32-36); Mean Corpuscular Hemoglobin 30.1 pg (27.0-31.0); Mean Corpuscular Volume 95.3 fL (78.0-102.0); Mean Platelet Volume 10.2 fl (8.7-11.0); Platelet Count Result 181 K/mm3 (150-420); Red Blood Count 4.28 M/mm3 (4.70-6.10); Red Cell Distribution Width 14.4 % (11.6-14.4); White Blood Count 7.4 K/mm3 (4.8-10.8)
== END 2024-07-12 08:11 | disposition home or self-care (01) ==
LOC: CHSLAB 08:13
PROVIDERS: PCP Internal Medicine; Visit Provider Internal Medicine
DX: D64.9 Anemia, unspecified (principal)
CPT/HCPCS: 36415; 85027

== ENCOUNTER 2024-07-27 10:27 | Emergency (ER) | payer MEDICARE, SELFPAY ==
[2024-07-27] VITALS (27 sets, daily range): BP systolic 97–124; BP diastolic 59–84; PULSE 78–95; RESP 16–20; TEMP 36.7–36.9; O2SAT 90–100
--- NOTE | ~2024-07-27 | CT_ITS ---
CT head without contrast Indication: Mental status change COMPARISON: 07/24/2021 Technique: Serial scans were obtained through the brain without the administration of contrast. Dose reduction technique was used on this scan by utilizing automated exposure control and iterative recon struction technique. The dose-length product (DLP) was 605.33 mGy-cm. Findings: There is no evidence of intracranial hemorrhage, mass lesion, or acute infarct. There is ex tensive chronic encephalomalacia involving nearly entire right frontal and parietal lobes, with relat nathan sparing of the right temporal lobe. The ventricles and subarachnoid spaces are dilated, consisten t with moderate to severe atrophy. Low attenuation regions are seen within the periventricular white matter bilaterally, likely representing changes from chronic microvascular ischemic disease. There i s no evidence of edema, mass effect or midline shift. The visualized paranasal sinuses and mastoid air cells are clear. Impression: No intracranial hemorrhage, mass, or acute infarct. Extensive chronic encephalomalacia the right cerebral hemisphere, as detailed above. Atrophy and chronic white matter changes, as above. Reviewed, dictated and finalized at location . Impression: No intracranial hemorrhage, mass, or acute infarct. Extensive chronic encephalomalacia the right cerebral hemisphere, as detailed a duc. Atrophy and chronic white matter changes, as above.
--- NOTE | ~2024-07-27 | XR_ITS ---
Portable chest x-ray Comparison: 07/24/2021 Clinical History: Cough Findings: Probable small left pleural effusion. Possible soft tissue density overlying the lateral l eft chest from overlying soft tissues. Right lung clear. Cardiomediastinal silhouette is stable. Bon es and soft tissues are unremarkable. Impression: Probable small left pleural effusion. Reviewed, dictated and finalized at location . Impression: Probable small left pleural effusion.
--- NOTE | 2024-07-27 10:35 | ED.URI ---
HPI - URI/Sore Throat General Chief Complaint: Upper Respiratory Infection Stated Complaint: uri does not feel well today Time Seen by Provider: 07/27/24 10:32 Source: patient Mode of arrival: wheelchair History of Present Illness HPI Narrative: 84-year-old male with a history of CVA with multiple strokes, left hemiplegia, dyslipidemia, CAD status post CABG, BPH, AFib on Xarelto, GED, chronic low back pain, diverticulosis was brought in from the [facility] with -- not feeling well -- cough and chest congestion -- questionable altered mental status as per [facility]pc. Currently the patient is awake and follows verbal commands. No fever or chills no chest pain or shortness of breath no nausea, vomiting, abdominal pain or diarrhea MD elicited complaint: cough Onset (ago): day(s) ( 1 day) Consistency: constant Exacerbating factors: nothing Relieving factors: nothing Associated symptoms: denies other symptoms and cough Treatments prior to arrival: none Related Data Home Medications Medication Instructions Recorded Confirmed Last Taken Type aspirin 81 mg tablet,delayed 81 mg PO DAILY 11/09/19 01/29/24 Unknown History release (Faby Low Dose Aspirin) isosorbide mononitrate 30 mg 30 mg PO DAILY 11/09/19 01/29/24 Unknown History tablet,extended release 24 hr pravastatin 20 mg tablet 20 mg PO DAILY 11/09/19 01/29/24 Unknown History fluticasone propionate 50 2 spray intranasal DAILY 07/24/21 01/29/24 Unknown History mcg/actuation nasal spray,suspension rivaroxaban 20 mg tablet (Xarelto) 20 mg PO DAILY 07/24/21 01/29/24 Unknown History tamsulosin 0.4 mg capsule 0.4 mg PO DAILY 07/24/21 01/29/24 Unknown History Allergies Allergy/AdvReac Type Severity Reaction Status Date / Time Penicillins Allergy Mild Rash Verified 07/27/24 10:45 terbinafine Allergy Rash Verified 07/27/24 10:45 Review of Systems Review of Systems: All systems reviewed & are unremarkable except as noted in HPI and below Constitutional: Constitutional: Reports as per HPI, Reports no additional constitutional complaints and Reports weakness Eyes: Eyes: Reports as per HPI and Reports no additional eye complaints ENT: Reports system reviewed and no additional complaints, except as documented and Reports as per HPI Cardiovascular: Cardiovascular: Reports as per HPI and Reports no additional cardiovascular complaints Respiratory: Respiratory: Reports as per HPI, Reports no additional respiratory complaints, Reports chest congestion and Reports cough Gastrointestinal: Gastrointestinal: Reports as per HPI and Reports no additional gastrointestinal complaints Genitourinary: Genitourinary: Reports no additional male genitourinary complaints Musculoskeletal: Musculoskeletal: Reports no additional musculoskeletal complaints and Reports as per HPI Integumentary/Breasts: Skin/Breast: Reports system reviewed and no additional complaints, except as docu and Reports as per HPI Neurologic: Reports system reviewed and no additional complaints, except as documented and Reports as per HPI Comments: CV with multiple strokes. Has the chest. Psychiatric: Psychiatric: Reports no additional psychiatric complaints and Reports as per HPI Endocrine: Endocrine: Reports no additional endocrine complaints and Reports as per HPI Hematologic/Lymphatic: Hematologic/Lymphatic: Reports no additional hematologic/lymphatic complaints and Reports as per HPI Allergic/Immunologic: Allergic/Immunologic: Reports no additional allergic/immunologic complaints and Reports as per HPI [facility] Past Medical History Medical History Generalized weakness Hypercholesteremia BPH (benign prostatic hyperplasia) Surgical History Surgical History Hx of CABG Family History Family History Father CAD (coronary artery disease) Mother Cerebrovascular accident Social History Social History Smoking status: Never smoker Alcohol intake: never Substance use: never Gender identity (if verbalized by the patient): Male Spiritual care concerns: No Exam Narrative: Pulse of 81. Blood pressure was 109/65. Oxygen saturation of 97% on room air. Const: General: ill appearing Nutritional Appearance: thin Orientation/consciousness: patient oriented x3 Limitations: no limitations HENMT: Head: normal to inspection Ears: external ears normal Face/Nose/Sinus: Normal external nose present Face and sinus: normal facial exam Mouth: Yes Normal oral and palatal mucosa present Throat: posterior oropharynx normal Eyes: Conjunctivae: conjunctivae normal Pupils: Equal, round and reactive pupils present EOM: EOMs intact bilaterally Direct Ophthalmoscopy: no photophobia Neck: Neck: normal visual inspection, no lymphadenopathy and no meningeal signs Chest: Chest palpation & inspection: normal inspection of the chest Resp: Effort & Inspection: normal respiratory effort Auscultation: clear to auscultation bilaterally Cardio: Rate: regular rate Rhythm: regular rhythm Other: Systolic murmur at the apex with wide radiation GI: GI Palp: Yes Soft to palpation Auscultation: normal bowel sounds Other: no tenderness/ rigidity /rebound. : General: Yes no CVA tenderness Back/Spine/Pelvis: Back: no CVA tenderness Skin: General skin exam: normal color Rashes: no rashes Wounds: no wounds Neuro: General: patient oriented x3 and no meningeal signs Speech: normal speech Other: left hemiplegia Extrem: General: normal to inspection and no clubbing, cyanosis or edema Psych: Mental Status: mental status grossly normal Affect: normal affect Course Course Emergency Course: cough and chest congestion-- blood work revealed elevated troponin and proBNP altered mental status-- patient has chronic left-sided weakness. CT did not show any new findings. Vital Signs Vital signs: Vital Signs Temperature 36.7 C 07/27/24 10:27 Pulse Rate 81 07/27/24 10:27 Respiratory Rate 20 07/27/24 10:27 Blood Pressure 106/69 07/27/24 10:27 Pulse Oximetry 99 07/27/24 10:27 Oxygen Delivery Room Air 07/27/24 10:27 Temperature 36.7 C 07/27/24 10:27 Pulse Rate 85 07/27/24 15:01 Respiratory Rate 20 07/27/24 15:01 Blood Pressure 121/74 07/27/24 15:01 Pulse Oximetry 90 07/27/24 15:01 Oxygen Delivery Room Air 07/27/24 15:01 MDM - URI/Sore Throat MDM Narrative Medical decision making narrative: CHF-- Clinically compensated elevated troponin- will repeat troponin-- to bones with noted to be 0.036 and 0.038. altered mental status-- CT of the head did not show any acute findings. The patient noted to have urinary tract infection. Differential Diagnosis Differential diagnosis: Likely viral infection Medical Records Attestation: I reviewed the patient's medical records. Lab Data Attestation: I reviewed the patient's lab results. 07/27/24 11:23 07/27/24 11:23 Labs: Lab Results 05/14/25 05/14/25 05/14/25 Range/Units 10:56 11:23 14:32 WBC 7.7 (4.8-10.8) K/mm3 RBC 4.83 (4.70-6.10) M/mm3 Hgb 13.9 (12.4-15.3) g/dL Hct 47.0 H (37.0-46.0) % MCV 97.3 (78.0-102.0) fL MCH 28.8 (27.0-31.0) pg MCHC 29.6 L (32-36) g/dL RDW 14.7 H (11.6-14.4) % Plt Count 137 L (150-420) K/mm3 MPV 11.4 H (8.7-11.0) fl Immature Gran % (Auto) 0.4 H (0.0-0.0) % Neut % (Auto) 66.2 (50.0-70.0) % Lymph % (Auto) 15.0 L (18.0-42.0) % [place] % (Auto) 13.4 H (2.0-11.0) % Eos % (Auto) 4.3 (1.0-6.0) % Baso % (Auto) 0.7 (0.0-1.0) % Lymph # (Auto) 1.15 (1.10-4.50) K/mm3 [place] # (Auto) 1.03 H (0.10-0.90) K/mm3 Eos # (Auto) 0.33 (0.02-0.50) K/mm3 Baso # (Auto) 0.05 (0.00-0.10) K/mm3 Abs Immat Gran (auto) 0.03 H (0.00-0.00) K/mm3 Absolute Neuts (auto) 5.09 (1.70-7.20) K/mm3 Absolute Nucleated RBC 0.00 (0.00-0.00) K/mm3 Nucleated RBC % 0.0 (0-0.0) % % Immature Plt Fraction 4.7 (1.0-7.0) % Sodium 142 (137-145) mmol/L Potassium 3.9 (3.4-5.0) mmol/L Chloride 115 H (98-107) mmol/L Carbon Dioxide 21 L (22-30) mmol/L Anion Gap 6 (4-12) mmol/L BUN 15 (9-20) mg/dL Creatinine 1.03 (0.7-1.3) mg/dL Estim Creat Clear Calc Not Reportable Estimated GFR > 60 (59 - ) Glucose 96 (65-110) mg/dL Calculated Osmolality 294 (285-295) mOsm/kg Lactic Acid 1.7 (0.4-2.0) mmol/L Calcium 8.4 (8.4-10.2) mg/dL Phosphorus 3.0 (2.5-4.5) mg/dL Magnesium 2.2 (1.6-2.3) mg/dL Total Bilirubin 1.6 H (0.2-1.3) mg/dL AST 27 (17-59) U/L ALT 38 (6-50) U/L Alkaline Phosphatase 80 (38-126) U/L Total Creatine Kinase 36 L (55-170) U/L Troponin I 0.038 H* 0.036 H* (0.000-0.034) ng/mL NT-Pro-B Natriuret Pep 43973 H (19.9-100) pg/mL Total Protein 6.5 (6.3-8.2) g/dL Albumin 3.0 L (3.5-5.1) g/dL Lipase 88 (23-300) U/L TSH 0.637 (0.465-4.680) uIU/mL Influenza A (RT-PCR) Negative (Negative) Influenza B (RT-PCR) Negative (Negative) RSV (RT-PCR) Negative (Negative) SARS-CoV-2 RNA (RT-PCR) Negative (Negative) ECG Data EKG #1: ECG completion date: 07/27/24 ECG completion time: 11:06 Interpretation: normal sinus rhythm. Normal axis. Poor R-wave progression in anterior leads suggestive of an old anterior infarction. No ST elevation. Discharge Plan Discharge Clinical Impression: Compensated heart failure Altered mental status Qualifiers: Altered mental status type: unspecified Qualified Code(s): R41.82 - Altered mental status, unspecified Urinary tract infection Qualifiers: Urinary tract infection type: site unspecified Hematuria presence: without hematuria Qualified Code(s): N39.0 - Urinary tract infection, site not specified Patient Disposition: Home Condition: Stable Instructions: Antibiotic Form, Urinary Tract Infection in Men (ED) Patient Language: Croatian Prescriptions: New sulfamethoxazole-trimethoprim [Bactrim DS] 800-160 mg tablet 1 tablet PO Q12H Qty: 14 0RF No Action aspirin [Faby Low Dose Aspirin] 81 mg Tablet,Delayed Release (Dr/Ec) 81 mg PO DAILY isosorbide mononitrate 30 mg tablet extended release 24 hr 30 mg PO DAILY pravastatin 20 mg tablet 20 mg PO DAILY tamsulosin 0.4 mg capsule 0.4 mg PO DAILY fluticasone propionate 50 mcg/actuation spray,suspension 2 spray INTRANASAL DAILY Xarelto 20 mg tablet 20 mg PO DAILY hydrocortisone acetate [Anusol-HC] 25 mg suppository 25 mg RECTAL BID Qty: 20 0RF Follow-up/Referrals: Memo Adam MD [Primary Care Provider] - Time of Disposition: 16:01
--- OUTSIDE RECORDS SUMMARY | 2024-07-27 10:47 | XMS_ITS | Referral Summary ---
Author Organization [facility] [address] Address [address] [place] [address] Care Team Providers Care Court Deputy Name Role Phone Memo Adam MD Primary Care Provider [phone] Encounters Date Type Department Care Team Description 06/02/2024 [facility] [address] [place] [address] Outpatient Health 4th Floor [address] [place] [phone] Shelby Fonseca 05/31/2024 [facility] [address] [place] [address] 4th Floor [address] [place] [phone] Shelby Fonseca from Last 3 Months Allergies [...] mg SL tabletIndication s:Coronary artery disease involving [place] coronary artery of [place] heart without angina pectoris Place 1 tablet [...] Diagnosed Date Coronary artery disease invo lving [place] coronary artery of [place] heart without angina pectoris 03/31/2017 Hx of [...] on file 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 Gender Identity Not on file Sexual Orientation Not on file Last Filed Vital Signs Vital Sign Reading Time Taken Comments Blood Pressure 124/72 05/23/2021 10:53 AM BIOMETRICIAN Pulse 92 05/23/2021 10:53 AM BIOMETRICIAN Temperature - - Respiratory Rate - - Oxygen Saturation 95% 05/23/2021 10:53 AM BIOMETRICIAN Inhaled Oxygen Concentration - - Weight 78.9 kg (174 lb) 05/23/2021 10:53 AM BIOMETRICIAN Height 177.8 cm (5' 10 ) 05/23/2021 10:53 AM BIOMETRICIAN Body Mass Index 24.97 05/23/2021 10:53 AM BIOMETRICIAN Plan of Treatment Not on file Insurance [facility] MEDICARE ADVANTAGE Care Teams Court Deputy Relationship Specialty Start Date End Date Memo Adam MD [address] [place] [address] PCP - General Internal Medicine 03/31/17
--- OUTSIDE RECORDS SUMMARY | 2024-07-27 10:47 | XMS_ITS | Encounter Summary ---
Author Organization [facility] Address [address] [place] [address] Care Team Providers Care Civil Rights Representative Name Role Phone Bob Hughes MD Primary Care Provider [phone] Bob Hughes MD Primary Care Provider [phone]- [phone] Memo Adam MD Primary Care Provider [phone] Encounter Details Date Type Department Care Team (Late st Contact Info) Description 05/16/2016 Orders Only [facility] ProviderEboni MD [address] [place] [address] Social History Tobacco Use Types Packs/Day Years Used Date Smoking Tobacco: Never Assessed Alcohol Use Standard Drinks/Week Comments No 0 (1 standard drink = 0.6 oz pur e alcohol) Sex and Gender Information Value Date Recorded Sex Assigned at Not on file 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
--- OUTSIDE RECORDS SUMMARY | 2024-07-27 10:47 | XMS_ITS | Clinical Summary ---
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 03/31/2017 Encounters Date Type Department Care Team Description 06/02/2024 [facility] [address] [place] [address] Outpatient [facility] 4th Floor [address] [place] [phone] Shelby Fonseca 05/31/2024 [facility] [address] [place] [address] 4th Floor [address] [place] [address] Shelby Fonseca from Last 3 [...] on file 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 Gender Identity Not on file Sexual Orientation Not on file Obstetrics History Last Filed Vital Signs Vital Sign Reading Time Taken Comments Blood Pressure 124/72 05/23/2021 10:53 AM TELECOMMUNICATIONS CABLE JOINTER Pulse 92 05/23/2021 10:53 AM TELECOMMUNICATIONS CABLE JOINTER Temperature - - Respiratory Rate - - Oxygen Saturation 95% 05/23/2021 10:53 AM TELECOMMUNICATIONS CABLE JOINTER Inhaled Oxygen Concentration - - Weight 78.9 kg (174 lb) 05/23/2021 10:53 AM TELECOMMUNICATIONS CABLE JOINTER Height 177.8 cm (5' 10 ) 05/23/2021 10:53 AM TELECOMMUNICATIONS CABLE JOINTER Body Mass Index 24.97 05/23/2021 10:53 AM TELECOMMUNICATIONS CABLE JOINTER Plan of Treatment Not on file Insurance [facility] MEDICARE ADVANTAGE [facility] Address: [address] [address] [place] [address] Care Teams Movie Actor Relationship Specialty Start Date End Date Memo Adam MD [address] [place] [address] PCP - General Internal Medicine 03/31/17
--- OUTSIDE RECORDS SUMMARY | 2024-07-27 10:47 | XMS_ITS | Encounter Summary ---
Author Organization [facility] Address [address] [place] [address] Care Team Providers Care Supply Chain Systems Manager Name Role Phone Bob Hughes MD Primary Care Provider +- [phone] Memo Adam MD Primary Care Provider + [phone] Encounter Details Date Type Department Care Team (Late st Contact Info) Description 06/13/2016 Orders Only [facility] ProviderEboni MD [address] [place] [address] Social History Tobacco Use Types Packs/Day Years Used Date Smoking Tobacco: Never Assessed Alcohol Use Standard Drinks/Week Comments No 0 (1 standard drink = 0.6 oz pur e alcohol) Sex and Gender Information Value Date Recorded Sex Assigned at Not on file 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
--- OUTSIDE RECORDS SUMMARY | 2024-07-27 10:47 | XMS_ITS | Clinical Summary ---
Author Organization [facility] Address [address], [address] [address] Phone Care Team Providers Care Tassel Clipper Name Role Phone Bob Hughes MD Primary Care Provider [phone] Allergies Active Allergy Reactions Criticality Noted Date [...] age to complete this topic Insurance MEDICARE [facility] Care Teams Tassel Clipper Relationship Specialty Start Date End Date Bob Hughes MD [address] [place], [place] [id number] PCP - General Family Medicine 08/20/15
--- NOTE | 2024-07-27 10:55 | ECG_ITS ---
Test Date: 2024-07-27 11:06:14 Measurements Intervals [place] Rate: 80 P: 86 OR: 188 QRS: 69 QRSD: 129 T: -43 QT: 423 QTc: 491 Interpretive Statements SINUS RHYTHM WITH OCCASIONAL VENTRICULAR PREMATURE COMPLEXES WITH FREQUENT SUPRAVENTRICULAR PREMATURE COMPLEXES POSSIBLE ANTERIOR MYOCARDIAL INFARCTION , OF INDETERMINATE AGE [30 ms Q WAVE IN V3/V4, OR R < 0.2 mV IN V4] No previous ECG available for comparison Electronically Signed On 07-27-2024 11:45:15 CDT by Mariola Hughes M.D.
[2024-07-27 11:30] LABS: Basophils Absolute Auto 0.05 K/mm3 (0.00-0.10); Basophils Percent Auto 0.7 % (0.0-1.0); Eosinophils Absolute Auto 0.33 K/mm3 (0.02-0.50); Eosinophils Percent Auto 4.3 % (1.0-6.0); Hemoglobin 13.9 g/dL (12.4-15.3); Immature Granulocyte Absolute 0.03 K/mm3 (0.00-0.00); Immature Granulocyte Percent A 0.4 % (0.0-0.0); Immature Platelet Fraction Pct 4.7 % (1.0-7.0); Lymphocytes Absolute Auto 1.15 K/mm3 (1.10-4.50); Mean Corpuscular HGB Conc 29.6 g/dL (32-36); Mean Corpuscular Hemoglobin 28.8 pg (27.0-31.0); Mean Corpuscular Volume 97.3 fL (78.0-102.0); Mean Platelet Volume 11.4 fl (8.7-11.0); Monocytes Absolute Auto 1.03 K/mm3 (0.10-0.90); Monocytes Percent Auto 13.4 % (2.0-11.0); Neutrophils Absolute Auto 5.09 K/mm3 (1.70-7.20); Neutrophils Percent Auto 66.2 % (50.0-70.0); Platelet Count Result 137 K/mm3 (150-420); Red Blood Count 4.83 M/mm3 (4.70-6.10); Red Cell Distribution Width 14.7 % (11.6-14.4); White Blood Count 7.7 K/mm3 (4.8-10.8)
[2024-07-27 11:54] LABS: Influenza A QL RT-PCR Negative (Negative); Influenza B QL RT-PCR Negative (Negative); RSV RNA, RT-PCR Negative (Negative); SARS-CoV-2 RNA PCR Negative (Negative)
[2024-07-27 11:59] LABS: Alanine Aminotransferase 38 U/L (6-50); Alkaline Phosphatase 80 U/L (38-126); Anion Gap 6 mmol/L (4-12); Aspartate Amino Transferase 27 U/L (17-59); Bilirubin,Total 1.6 mg/dL (0.2-1.3); Blood Urea Nitrogen 15 mg/dL (9-20); Calcium 8.4 mg/dL (8.4-10.2); Carbon Dioxide 21 mmol/L (22-30); Chloride 115 mmol/L (98-107); Creatine Kinase 36 U/L (55-170); Estimated Glomerular Filt Rate > 60; Glucose 96 mg/dL (65-110); Lactic Acid Reflex 1.7 mmol/L (0.4-2.0); Lipase 88 U/L (23-300); Magnesium 2.2 mg/dL (1.6-2.3); Osmolality Calculated 294 mOsm/kg (285-295); Potassium 3.9 mmol/L (3.4-5.0); Sodium 142 mmol/L (137-145); Total Protein 6.5 g/dL (6.3-8.2)
[2024-07-27 12:10] LABS: NT Pro B Type Natriuretic Pept 11700 pg/mL (19.9-100)
[2024-07-27 12:19] LABS: Troponin I 0.038 ng/mL (0.000-0.034)
[2024-07-27 12:29] LABS: Thyroid Stimulating Hormone 0.637 uIU/mL (0.465-4.680)
[2024-07-27 15:31] LABS: Troponin I 0.036 ng/mL (0.000-0.034)
[2024-07-27] MEDS: SULFAMETHOXAZOLE/TRIMETHOPRIM 800/160 MG DS TABLET 1 TAB PO (16:12)
== END 2024-07-27 16:34 | disposition home or self-care (01) ==
PROVIDERS: Emergency Provider Internal Medicine Critical Care Medicine; PCP Internal Medicine
DX: I50.9 Heart failure, unspecified (principal); R41.82 Altered mental status, unspecified; N39.0 Urinary tract infection, site not specified; I48.91 Unspecified atrial fibrillation; I25.810 Atherosclerosis of coronary artery bypass graft(s) without angina pectoris; Z95.1 Presence of aortocoronary bypass graft; Z20.822 Contact with and (suspected) exposure to COVID-19; Z79.01 Long term (current) use of anticoagulants
CPT/HCPCS: 36415; 70450; 71045; 80053; 82550; 83605; 83690; 83735; 83880; 84100; 84443; 84484; 85025; 85055; 87637; 93005; 99284; A9270